=== PATIENT | male | born 1985 | race Caucasian/White ===

== ENCOUNTER 2022-07-07 18:52 | Inpatient (IN) | payer MEDICAID, MEDICARE ==
[~2022-07-07] VITALS: Ht 182.8 cm; Wt 76.3 kg
[2022-07-07] MEDS ORDERED: NS IV 1000 ML 1,000 ML IV SCH (19:45)
[2022-07-07] MEDS ORDERED: AMPICILLIN/SULBACTAM INJECTION 3 GM in NS (IVPB) 100 ML IV ONE (19:45)
--- NOTE | 2022-07-07 19:52 | ED Integumentary General ---
General Chief Complaint: Bite-Animal/Human/Insect Stated Complaint: BITE Nursing Triage Note: pt ambulatory to room with use of cane. pt was attacked by a dog two days ago. wounds to bilateral lower legs and to buttock. 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 states he does not know whos dog it was and did not report it when it happened. states he has felt feverish. Source: patient Exam Limitations: no limitations History of Present Illness Date Seen by Provider: Jul 07, 2022 Time Seen by Provider: 19:48 Initial Comments This is a 36-year-old male who presented to the ER via POV with complaints of left leg swelling and pain. States that he was attacked by a pit bull 2 days ago, unknown dog, they were unable to secure dog. He was bit on his left lower leg and his right buttock. States that he took 1 Aleve approximate hour to arrival, pain is still 10 out of 10. Allergies and Home Medications Allergies Coded Allergies: No Known Drug Allergies (Unverified , 07/07/22) Past Jjfspzy-Ldftmv-Ygqzvt Hx Patient Social History Tobacco Use?: Yes Tobacco type used: Cigarettes Smoking Status: Current Everyday Smoker Substance use?: Yes Substance type: Methamphetamine Substance frequency: Several times a month Alcohol Use?: No Immunizations Up To Date Influenza Vaccine Up-to-Date: No; Not Current Physical Exam Vital Signs Vital Signs - First Documented 07/07/22 19:11 Temp 37.2 Pulse 112 Resp 16 B/P (MAP) 115/70 (85) Pulse Ox 100 Capillary Refill : Progress/Results/Core Measures Results/Orders Lab Results Laboratory Tests Test 07/07/22 19:47 07/07/22 21:09 Range/Units White Blood Count 26.7 H 4.3-11.0 10^3/uL Red Blood Count 4.04 L 4.30-5.52 10^6/uL Hemoglobin 12.7 L 13.3-17.7 g/dL Hematocrit 37 L 40-54 % Mean Corpuscular Volume 91 80-99 fL Mean Corpuscular Hemoglobin 31 25-34 pg Mean Corpuscular Hemoglobin Concent 35 32-36 g/dL Red Cell Distribution Width 12.9 10.0-14.5 % Platelet Count 179 130-400 10^3/uL Mean Platelet Volume 11.5 9.0-12.2 fL Immature Granulocyte % (Auto) 2 % Neutrophils (%) (Auto) 90 H 42-75 % Lymphocytes (%) (Auto) 4 L 12-44 % Monocytes (%) (Auto) 4 0-12 % Eosinophils (%) (Auto) 0 0-10 % Basophils (%) (Auto) 0 0-10 % Neutrophils # (Auto) 24.0 H 1.8-7.8 10^3/uL Lymphocytes # (Auto) 1.0 1.0-4.0 10^3/uL Monocytes # (Auto) 1.0 0.0-1.0 10^3/uL Eosinophils # (Auto) 0.0 0.0-0.3 10^3/uL Basophils # (Auto) 0.1 0.0-0.1 10^3/uL Immature Granulocyte # (Auto) 0.6 H 0.0-0.1 10^3/uL Neutrophils % (Manual) 74 % Lymphocytes % (Manual) 5 % Monocytes % (Manual) 1 % Band Neutrophils 20 % Blood Morphology Comment NORMAL Prothrombin Time 17.1 H 12.2-14.7 SEC INR Comment 1.4 0.8-1.4 Activated Partial Thromboplast Time 36 H 24-35 SEC Sodium Level 133 L 135-145 MMOL/L Potassium Level 3.7 3.6-5.0 MMOL/L Chloride Level 99 98-107 MMOL/L Carbon Dioxide Level 20 L 21-32 MMOL/L Anion Gap 14 5-14 MMOL/L Blood Urea Nitrogen 53 H 7-18 MG/DL Creatinine 4.57 H 0.60-1.30 MG/DL Estimat Glomerular Filtration Rate 16 BUN/Creatinine Ratio 12 Glucose Level 114 H 70-105 MG/DL Lactic Acid Level 1.87 0.50-2.00 MMOL/L Calcium Level 9.0 8.5-10.1 MG/DL Corrected Calcium 9.6 8.5-10.1 MG/DL Total Bilirubin 0.3 0.1-1.0 MG/DL Aspartate Amino Transf (AST/SGOT) 29 5-34 U/L Alanine Aminotransferase (ALT/SGPT) 28 0-55 U/L Alkaline Phosphatase 58 40-136 U/L C-Reactive Protein High Sensitivity 32.16 H 0.00-0.50 MG/DL Total Protein 6.1 L 6.4-8.2 GM/DL Albumin 3.2 3.2-4.5 GM/DL Procalcitonin 17.19 H <0.10 NG/ML My Orders Orders - KYE MADDOX DIELECTRIC PRESS OPERATOR Ampicillin/Sulbactam Injection (Unasyn 3 (07/07/22 19:45) Cbc With Automated Diff (07/07/22 19:43) Comprehensive Metabolic Panel (07/07/22 19:43) Blood Culture (07/07/22 19:43) Sputum Culture (07/07/22 19:43) Urinalysis (07/07/22 19:43) Urine Culture (07/07/22 19:43) Protime With Inr (07/07/22 19:43) Partial Thromboplastin Time (07/07/22 19:43) Ed Iv/Invasive Line Start (07/07/22 19:43) O2 (07/07/22 19:43) Remove Rings In Anticipation O (07/07/22 19:43) Lactic Acid Analyzer (07/07/22 19:43) Ns Iv 1000 Ml (Sodium Chloride 0.9%) (07/07/22 19:45) Procalcitonin (Pct) (07/07/22 19:44) Hs C Reactive Protein (07/07/22 19:44) Drug Screen Stat (Urine) (07/07/22 19:52) Manual Differential (07/07/22 19:47) Rabies Immune Globulin/Pf 10ml (Kedrab 1 (07/07/22 20:15) Dipht,Pertuss(Acell),Tet Adult (Boostrix (07/07/22 20:15) Rabies Vaccine Human Dipl Cell (Rabavert (07/07/22 20:15) Fentanyl Inj (Sublimaze Injection) (07/07/22 21:15) Ns Iv 1000 Ml (Sodium Chloride 0.9%) (07/07/22 21:15) Medications Given in ED Current Medications Medications Dose Ordered Sig/Jonathan Route Start Time Stop Time Status Last Admin Dose Admin Ampicillin Sodium/ Sulbactam Sodium 3 gm/Sodium Chloride 100 ml @ 200 mls/hr ONCE ONCE IV 07/07/22 19:45 07/07/22 20:14 DC 07/07/22 20:03 200 MLS/HR Vital Signs/I&O 07/07/22 19:11 Temp 37.2 Pulse 112 Resp 16 B/P (MAP) 115/70 (85) Pulse Ox 100 Blood Pressure Mean: 85 Departure Communication (Admissions) Time/Spoke to Admitting Phy: 20:29 Dr. Tapia Time/Spoke to Consulting Phy: 19:48 Dr. Angeles Impression Primary Impression: Infected dog bite of lower leg Additional Impressions: Sepsis Acute kidney injury Disposition: ADMITTED INPATIENT Condition: Stable Admissions Decision to Admit Reason: Admit from ER (General) Decision to Admit/Date: Jul 07, 2022 Time/Decision to Admit Time: 20:33 KYE MADDOX DIELECTRIC PRESS OPERATOR Jul 07, 2022 19:52
[2022-07-07 20:00] LABS: BASOPHILS # (AUTO) 0.1 10^3/uL (0.0-0.1); BASOPHILS % (AUTO) 0 % (0-10); EOSINOPHILS % (AUTO) 0 % (0-10); HEMATOCRIT 37 % (40-54); HEMOGLOBIN 12.7 g/dL (13.3-17.7); LYMPHOCYTES % (AUTO) 4 % (12-44); MEAN CORPUSCULAR HEMOGLOBIN 31 pg (25-34); MEAN CORPUSCULAR HGB CONC 35 g/dL (32-36); MEAN CORPUSCULAR VOLUME 91 fL (80-99); MEAN PLATELET VOLUME 11.5 fL (9.0-12.2); MONOCYTES % (AUTO) 4 % (0-12); NEUTROPHILS % (AUTO) 90 % (42-75); PLATELET COUNT 179 10^3/uL (130-400); WHITE BLOOD COUNT 26.7 10^3/uL (4.3-11.0)
[2022-07-07 20:13] LABS: ALBUMIN 3.2 GM/DL (3.2-4.5); POTASSIUM 3.7 MMOL/L (3.6-5.0)
[2022-07-07 20:14] LABS: INR 1.4 (0.8-1.4); PROTHROMBIN TIME PATIENT 17.1 SEC (12.2-14.7)
[2022-07-07] MEDS ORDERED: RABIES IMMUNE GLOBULIN (KEDRAB) 1,500 UNITS/10 ML IM ONE (20:15)
[2022-07-07] MEDS ORDERED: TETANUS,DIPTH,PERTUSS P/F (BOOSTRIX) 0.5 ML VIAL IM ONE (20:15)
[2022-07-07] MEDS ORDERED: RABIES VACCINE HUMAN DIPL CELL 1 ML/2.5 UNITS SYR INJ ONE (20:15)
[2022-07-07 20:16] LABS: TOTAL PROTEIN 6.1 GM/DL (6.4-8.2)
[2022-07-07 20:18] LABS: BILIRUBIN,TOTAL 0.3 MG/DL (0.1-1.0)
[2022-07-07 20:20] LABS: CREATININE SERUM 4.57 MG/DL (0.60-1.30)
[2022-07-07 20:21] LABS: BAND NEUTROPHILS 20 %; LYMPHOCYTES % (MANUAL) 5 %; MONOCYTES % (MANUAL) 1 %; NEUTROPHILS % (MANUAL) 74 %; RBC MORPH NORMAL
[2022-07-07] MEDS ORDERED: fentaNYL INJ 100 MCG/2 ML AMP IVP ONE (21:15)
[2022-07-07] MEDS: NS IV 1000 ML 1,000 ML IV SCH ×2 (21:16→21:24)
[2022-07-07 21:18] LABS: BILIRUBIN,URINE NEGATIVE (NEGATIVE); CLARITY,URINE CLEAR; COLOR,URINE YELLOW; GLUCOSE, URINE (UA) NEGATIVE (NEGATIVE); KETONES,URINE NEGATIVE (NEGATIVE); LEUKOCYTE ESTERASE ,URINE NEGATIVE (NEGATIVE); NITRITE,URINE NEGATIVE (NEGATIVE); PROTEIN,URINE 2+ (NEGATIVE)
[2022-07-07 21:30] LABS: BACTERIA,URINE FEW /HPF
[2022-07-07 21:39] LABS: AMPHETAMINE SCREEN, URINE POSITIVE (NEGATIVE); BARBITURATE SCREEN URINE NEGATIVE (NEGATIVE); BENZODIAZEPINES SCREEN URINE NEGATIVE (NEGATIVE); CANNABINOID SCREEN, URINE NEGATIVE (NEGATIVE); COCAINE SCREEN URINE NEGATIVE (NEGATIVE); METHADONE STAT NEGATIVE (NEGATIVE); OPIATE SCREEN URINE NEGATIVE (NEGATIVE); OXYCODONE STAT NEGATIVE (NEGATIVE); PROPOXYPHENE STAT NEGATIVE (NEGATIVE); TRICYCLIC ANTIDEPRESSANTS SCRE NEGATIVE (NEGATIVE)
[2022-07-07] MEDS ORDERED: KETOROLAC 15 MG/ML VIAL IV PRN (23:45)
[2022-07-07] MEDS ORDERED: cloNIDine 0.1 MG (CATAPRES) TAB PO PRN (23:45)
[2022-07-07] MEDS ORDERED: LACTULOSE SYRUP 10GM/15ML (ENULOSE) 30ML UDC PO PRN (23:45)
[2022-07-07] MEDS ORDERED: ONDANSETRON 4 MG/2 ML (SDV) Z0FRAN IV PRN (23:45)
[2022-07-07] MEDS ORDERED: CALCIUM CARBONATE 500 MG (TUMS) TAB.CHEW PO PRN (23:45)
[2022-07-07] MEDS ORDERED: BISACODYL 10 MG SUPP (DULCOLAX) PR PRN (23:45)
[2022-07-07] MEDS ORDERED: MILK OF MAGNESIA 400 MG/5 ML 30 ML UDC PO PRN (23:45)
[2022-07-07] MEDS ORDERED: VANCOMYCIN INJECTION 0.1 MG in NS (IVPB) 250 ML IV SCH (23:45)
[2022-07-07] MEDS ORDERED: diphenhydrAMINE 25 MG TAB (BENADRYL) PO PRN (23:45)
[2022-07-07] MEDS ORDERED: ONDANSETRON 4 MG (ZOFRAN) ORAL DISSOLVE TAB PO PRN (23:45)
[2022-07-07] MEDS ORDERED: NS IV 500 ML 500 ML IV PRN (23:45)
[2022-07-07] MEDS ORDERED: polyethylene glycoL POWDER 17 GM (MIRALAX) PACK PO PRN (23:45)
[2022-07-07] MEDS ORDERED: diphenhydrAMINE 50 MG/ML INJ (BENADRYL) IVP PRN (23:45)
[2022-07-07] MEDS ORDERED: ANTACID SUSP 30 ML UDC (MYLANTA) PO PRN (23:45)
[2022-07-07] MEDS ORDERED: MELATONIN 3 MG TABLET PO PRN (23:45)
[2022-07-08] VITALS (7 sets, daily range): BP systolic 102–125; BP diastolic 66–81
--- NOTE | 2022-07-08 00:18 | Tele-ICU Progress Note ---
Progress Note 36M with h/o meth abuse admitted for infected dog bite and SALVADOR. Was bitten by a pittbull 2 days ago with wounds to bilateral lower legs and buttock. He denies knowing whose dog it was and was unable to testrain it. Has had increased swelling and pain, subjective fevers. Currently rating pain at 15/10. States it was improved with fentanyl in ED. In ED cultures sent, started on unasyn and vanco. Incidentally found to have creatinine 4.5. - Dog Bite: with cellulitus. Received unasyn, vanco, rabbies uumne globulin and rabies vaccine in ED. Poison control following. Cellulitus borders marked for m onitoring. Pain control. - SALVADOR: given 3L IVF in ED. Will start LR at 150 cc/hr. Monitor renal function and urine output. Avoid nephrotoxins as much as possible. Diagnosis: _X_ patient provided consent for the telehealth visit ___patient is not able to provide consent for the telehealth visit, service provided to critically care patient using implied consent doctrine. A total of 19 minutes of critical care time was devoted to this patient, including reviewing this patient's available data, including medical history, events of note and test results. *I have overseen the activities of other members of the care team under my direct supervision during events of the note . *This was required to treat and/or prevent further deterioration of critical c are conditions ( as above ). *Service provided to a patient admitted to ICU bed via interactive E-CARE system with real-time audio and video telecommunications from [facility]- ICU hub located in [place], [place] Focused Exam Lactate Level 07/07/22 19:47: Lactic Acid Level 1.87 Height, Weight, BMI Height: '" Weight: lbs. oz. kg; 23.00 BMI Method: YUN BLAKE MD Jul 08, 2022 00:18
[2022-07-08] MEDS: fentaNYL INJ 100 MCG/2 ML AMP IVP PRN ×3 (00:41→07:52)
[2022-07-08] MEDS: NS IV 1000 ML 1,000 ML IV SCH ×3 (00:41→15:26)
[2022-07-08] MEDS: NOREPINEPHRINE 8 MG/250 ML 250 ML IV SCH ×2 (00:51→16:30)
[2022-07-08] MEDS ORDERED: RT-ALBUTEROL SULF 2.5 MG/3 ML PRE-MIX VIAL INH PRN (01:00)
[2022-07-08] MEDS: KCL 20 MEQ TAB (K-DUR) PO SCH (01:37)
[2022-07-08] MEDS ORDERED: VANCOMYCIN 1 GM/NS 250 ML IVPB IV ONE ×2 (01:45)
[2022-07-08] MEDS ORDERED: VANCOMYCIN 750 MG/NS 250 ML IVPB IV ONE ×2 (02:45)
[2022-07-08] MEDS: POTASSIUM CL 10MEQ/50ML IVPB 50 ML IV SCH (02:51)
[2022-07-08] MEDS: morphine INJ 4 MG/ML 1 ML (VIAL/SYRINGE) IV PRN ×3 (03:20→19:06)
[2022-07-08] MEDS: MAGNESIUM 1 GM/100 ML IVPB 100 ML IV SCH (03:42)
[2022-07-08 05:33] LABS: BASOPHILS # (AUTO) 0.1 10^3/uL (0.0-0.1); BASOPHILS % (AUTO) 0 % (0-10); EOSINOPHILS # (AUTO) 0.1 10^3/uL (0.0-0.3); EOSINOPHILS % (AUTO) 1 % (0-10); HEMATOCRIT 34 % (40-54); HEMOGLOBIN 11.7 g/dL (13.3-17.7); LYMPHOCYTES # (AUTO) 0.9 10^3/uL (1.0-4.0); LYMPHOCYTES % (AUTO) 5 % (12-44); MEAN CORPUSCULAR HEMOGLOBIN 31 pg (25-34); MEAN CORPUSCULAR HGB CONC 34 g/dL (32-36); MEAN CORPUSCULAR VOLUME 91 fL (80-99); MEAN PLATELET VOLUME 11.8 fL (9.0-12.2); MONOCYTES # (AUTO) 1.4 10^3/uL (0.0-1.0); MONOCYTES % (AUTO) 7 % (0-12); NEUTROPHILS # (AUTO) 17.6 10^3/uL (1.8-7.8); NEUTROPHILS % (AUTO) 84 % (42-75); PLATELET COUNT 166 10^3/uL (130-400)
[2022-07-08 05:41] LABS: ALBUMIN 2.7 GM/DL (3.2-4.5); POTASSIUM 3.6 MMOL/L (3.6-5.0)
[2022-07-08 05:42] LABS: CALCIUM 8.3 MG/DL (8.5-10.1)
[2022-07-08 05:44] LABS: TOTAL PROTEIN 5.2 GM/DL (6.4-8.2)
[2022-07-08 05:45] LABS: BILIRUBIN,TOTAL 0.3 MG/DL (0.1-1.0)
[2022-07-08 05:47] LABS: CREATININE SERUM 4.11 MG/DL (0.60-1.30); PHOSPHORUS 3.4 MG/DL (2.3-4.7)
[2022-07-08 05:50] LABS: MAGNESIUM 1.5 MG/DL (1.6-2.4)
--- NOTE | 2022-07-08 08:12 | Physician Query Clarification ---
PQ-Uncertain Diagnosis Admission/Discharge Admission Date: Jul 07, 2022 at 22:15 Discharge Date: Dr. Tapia, The medical record reflects the following clinical scenario: History/Risk Factors: Dog bite w/cellulitis lt lower leg, SALVADOR Clinical Findings: Lactic acid 1.87, WBC 26.7, P 112, T 37.2, R 16, Procalcitonin 17.19, Bun/Cr 53/4.57 Treatment: IV Ampicillin, IV Vancomycin Question: Is sepsis a clinically valid diagnosis? Sepsis was documented in the ER rpt with no further documentation in the medical record. Please document a response in Progress Note or Discharge Summary. 1. Yes, clinically valid, condition resolved. 2. No, condition ruled out. 3. Other, with explanation of clinical findings. 4. Undetermined, no explanation for clinical findings. PHYSICIAN RESPONSE Diagnosis clinically valid: Undetermined (this query was sent BEFORE we assessed the patient so documentation will be done shortly by dr contreras) In responding to this query, please exercise your independent professional judgment. The purpose of this communication is to more accurately reflect the complexity of your patients condition. The fact that a question is asked does not imply that any particular answer is desired or expected. Thank you for your timely response to this clarification. Requestors name: Arlene THIS PHYSICIAN QUERY FORM IS A PERMANENT PART OF THE MEDICAL RECORD ARLENE PIÑA Jul 08, 2022 08:12 SOLEDAD TAPIA DO Jul 08, 2022 10:24
[2022-07-08] MEDS: ENOXAPARIN INJECTION 30 MG/0.3 ML SYR SC SCH (09:00)
[2022-07-08] MEDS: AMPICILLIN/SULBACTAM INJECTION 3 GM in NS (IVPB) 100 ML IV SCH ×2 (09:01→20:38)
[2022-07-08] MEDS: SENNOSIDES 8.6 MG (SENOKOT) TAB PO SCH ×2 (09:25→20:38)
[2022-07-08] MEDS: DOCUSATE SODIUM 100 MG (COLACE) CAP PO SCH ×2 (09:25→20:38)
--- NOTE | 2022-07-08 09:37 | Tele-ICU Consult ---
History of Present Illness History of Present Illness Date Seen by Provider: Jul 08, 2022 Time Seen by Provider: 08:15 Date of Admission (Tele-ICU Physician , consultation as per request of PCP Service provided via interactive audio and video telecommunications E-CARE system to a patient admitted to ICU bed in [facility]. Available chart/ vitals / labs / Images reviewed H&P is from ER notes Patient's information available about PMH, Shx, Fhx allergy reviewed inEMR. ROS as per chart and RN report Seen last night by Dr Samantha Oden tele-ICU Now in ICU, hemodynamically stable Video assessment done using teleICU camera, rest of exam as per RN Discussed with RN. Consultants: Hospital course: (07/07) 36yr M admitted for SALVADOR, Infected Dog Bite to left leg and right buttock. Patient was attacked by pitbull 2 days ago. + Methamphetamines. A/P - Dog Bite ( wounds to bilateral lower legs and to buttock.) with cellulitus. (rabbies uumne globulin and rabies vaccine given in ED. Poison control following. Cellulitus --Received unasyn, vanco borders marked for monitoring. Pain control. Acute kidney injury -received > 4 L - will check CPK - Cr still > 4 , but reported good UO - NS 200/h -Monitor renal function and urine output. Avoid nephrotoxins as much as possi ble. Substance abuse ( + methamphet + amphetamines ) - monitor for withdrawal Lines : periph , (Central Line Necessity Reviewed) [place]: void OG: Nutrition: po Analgesia: Anxiety/ delirium VTE Prophylaxis: alexander 30 Stress Ulcer Prophylaxis: na Plans in collaboration with bedside consultants and IM MDs. Discussed with RN to reach out if any questions or concerns A total of 32 minutes of critical care time was devoted to this patient today, required to treat and/or prevent further deterioration of critical care condition ( as above ) . I am remotely monitoring this patient from another state. I am unable to do the bedside exam, and history/physical and pertinent information is taken from other notes in the computer and bedside staff. . Allergies and Home Medications Allergies Coded Allergies: No Known Drug Allergies (Unverified , 07/07/22) Past Medical/Social/Family Hx Patient Social History Tobacco Use?: Yes Tobacco type used: Cigarettes Smoking Status: Current Everyday Smoker Substance use?: Yes Substance type: Methamphetamine Substance frequency: Couple times a week Alcohol Use?: Yes Alcohol type: Beer Immunizations Up To Date Influenza Vaccine Up-to-Date: No; Not Current Tetanus Booster (TDap): More Than 5 Years Current Status Advance Directives: Yes Communicates: Verbally Primary Language: Martiniquais Preferred Spoken Language: Martiniquais Is interpretation needed?: No Review of Systems Constitutional: see HPI Focused Exam Lactate Level 07/07/22 19:47: Lactic Acid Level 1.87 Height, Weight, BMI Height: '" Weight: lbs. oz. kg; 22.59 BMI Method: Exam Exam Patient acknowledged, consented, and participated in this virtual visit which was conducted using real time audio/video Vital Signs Date Time Temp Pulse Resp B/P (MAP) Pulse Ox O2 Delivery O2 Flow Rate FiO2 07/08/22 08:00 99 106/71 (83) 99 Room Air 07/08/22 07:56 36.8 07/08/22 07:46 100 Room Air 07/08/22 07:38 100 07/08/22 07:00 96 45 115/79 (91) 100 Room Air 07/08/22 06:00 104 20 114/76 (89) 100 Room Air 07/08/22 05:00 97 100/65 (77) 100 Room Air 07/08/22 04:00 99 Room Air 07/08/22 04:00 103 16 102/70 (81) 100 Room Air 07/08/22 03:20 98 Room Air 07/08/22 03:15 101 25 111/73 (86) 100 Room Air 07/08/22 02:00 106 97/59 (72) 100 Room Air 07/08/22 01:15 105 8 107/75 (86) 100 Room Air 07/08/22 00:51 112 115/70 07/08/22 00:43 37.2 112 100 21 07/08/22 00:23 99 Room Air 07/08/22 00:13 99 Room Air 07/08/22 00:08 104 07/08/22 00:00 105 13 117/65 (82) 99 Room Air 07/08/22 00:00 37.2 107 16 114/74 100 07/08/22 00:00 36.9 07/07/22 19:11 37.2 112 16 115/70 (85) 100 I & O 07/08/22 07:00 Intake Total 4650 ml Output Total 700 ml Balance 3950 ml Height & Weight Height: '" Weight: lbs. oz. kg; 22.59 BMI Method: General Appearance: No Apparent Distress Results Lab Laboratory Tests 07/07/22 19:47 07/08/22 04:45 Assessment/Plan Assessment/Plan 1 BABITA BRIGHT MD Jul 08, 2022 09:37
--- NOTE | 2022-07-08 11:46 | Diagnostic Imaging Report ---
PROCEDURE: CT left lower extremity without contrast. TECHNIQUE: Multiple contiguous axial images were obtained through the left lower extremity without the use of intravenous contrast. Sagittal and coronal reformations were then performed. Auto Exposure Controls were utilized during the CT exam to meet ALARA standards for radiation dose reduction. INDICATION: Dogbite with possible infection to the left lower extremity. EXAMINATION: CT left lower extremity without contrast 07/08/2022 FINDINGS: There is marked diffuse subcutaneous fat stranding likely due to edema although cellulitis is not excluded. There is no subcutaneous abscess. There are multifocal areas of air within the posterior lateral aspect of the proximal calf with surrounding fluid noted. This appears to lie within the lateral head of the gastrocnemius muscle and extends into the underlying fascial planes possibly involving portions of the soleus muscle. An intramuscular abscess is not excluded and MRI could provide better characterization. Minimal air is also noted within the posterior subcutaneous soft tissues of the mid and proximal calf. There is no acute osseous abnormality. No fractures or dislocations. Joint spaces maintained. IMPRESSION: 1. Diffuse subcutaneous edema versus cellulitis with minimal subcutaneous air in the posterior mid to proximal calf. 2. Fluid collection containing multiple foci of air within the lateral gastrocnemius muscle and underlying deeper fascial planes possibly involving portions of the soleus. An intramuscular abscess is not excluded. MRI recommended for further characterization if clinically indicated. Otherwise the focal air could be secondary to the dogbite with a gas-forming organism not excluded. 3. Not mentioned above a fair amount of fluid lies along the fascial planes overlying the posterior musculature of the calf suggesting fasciitis. Dictated by: Dictated on workstation # [id number]
--- NOTE | 2022-07-08 12:45 | Progress Note-Pre Operative ---
Pre-Operative Progress Note Date of Available H&P: Jul 08, 2022 Date H&P Reviewed: Jul 08, 2022 Time H&P Reviewed: 12:30 History & Physical: No changes noted Pre-Operative Diagnosis: necrotizing fasciitis left leg JARON CASTELLANOS MD Jul 08, 2022 12:45
--- NOTE | 2022-07-08 12:55 | History & Physical-Hospitalist ---
ELGINCTANAND 07/08/22 1255: History of Present Illness HPI/Chief Complaint Danis Moura is a 36y/o M who is being seen for dog bites. Pt reports that 3 days ago he was bit by a dog on both lower legs and his right buttocks. He did not know who's dog it was. The dog ran away afterwards and pt did not make a police report or call animal control. He did not seek medical attention after the incident. In the following days the legs began to swell and become red. Presented to the ER last night due to the increasing swelling, erythema, and pain. Also was having fever and chills. Given rabies immunoglobin and rabies vaccine. Also started on antibiotics. Today her reports that the pain in his legs is a "12/10". The pain does improve w/ pain medication. Erythema has not spread and he says that the swelling has improved since admission. Denies currently having any fevers, chills, vision changes, headaches, muscle weakness, numbness, or tingling in extremities. He does have a hx of meth use. Source: patient Exam Limitations: no limitations Date Seen 07/08/22 Time Seen by a Provider: 08:36 Attending Physician No,Local Physician PCP Admitting Physician: Lucila Tapia DO Attending Physician: Lucila Tapia DO Referring Physician Date of Admission Jul 07, 2022 at 22:15 Home Medications & Allergies Home Medications Reviewed patient Home Medication Reconciliation performed by pharmacy medication reconciliations accessibility lift technician and/or nursing. Patients Allergies have been reviewed. Allergies Allergies Coded Allergies No Known Drug Allergies (Gwnmtmcagl61/9/22) Past Byolwpi-Kzlcvt-Wsxfya Hx Patient Social History Tobacco Use?: Yes Tobacco type used: Cigarettes Smoking Status: Current Everyday Smoker Substance use?: Yes Substance type: Methamphetamine Substance frequency: Couple times a week Alcohol Use?: Yes Alcohol type: Beer Immunizations Up To Date Tetanus Booster (TDap): More Than 5 Years Current Status Advance Directives: Yes Communicates: Verbally Primary Language: Portuguese Preferred Spoken Language: Portuguese Is interpretation needed?: No Review of Systems Constitutional: No chills, No dizziness, No fever, No weakness EENTM: No blurred vision, No double vision Respiratory: No cough, No dyspnea on exertion Cardiovascular: No chest pain, No palpitations Gastrointestinal: No abdominal pain, No nausea, No vomiting Genitourinary: No dysuria, No frequency Musculoskeletal: other (b/l leg pain and swelling) Skin: other (erythema in legs) Psychiatric/Neurological: Denies Headache, Denies Numbness, Denies Paresthesia, Denies Tingling Physical Exam Physical Exam Vital Signs Vital Signs - First Documented 07/07/22 07/08/22 07/08/22 19:11 00:00 00:43 Temp 37.2 Pulse 112 Resp 16 B/P (MAP) 115/70 (85) Pulse Ox 100 O2 Delivery Room Air FiO2 21 Capillary Refill : Height, Weight, BMI Height: '" Weight: lbs. oz. kg; 22.59 BMI Method: General Appearance: No Apparent Distress, WD/WN HEENT: PERRL/EOMI; No Photophobia Neck: Non Tender, Supple Respiratory: Chest Non Tender, Lungs Clear, Normal Breath Sounds, No Accessory Muscle Use, No Respiratory Distress Cardiovascular: Regular Rate, Rhythm, No Murmur, Normal Peripheral Pulses Gastrointestinal: Non Tender, Soft Extremity: Calf Tenderness (left leg), Inflammation (lf leg worse than right, swelling extends proximally to just above the popliteal fossa and distally to above the ankle on left, much less on right), Swelling (lf worse than right) Neurologic/Psychiatric: Alert, Oriented x3, Normal Mood/Affect Skin: Erythema, Other (warm to touch b/l legs, left>right) Results Results/Procedures Labs Laboratory Tests 07/07/22 19:47 07/08/22 04:45 Patient resulted labs reviewed. Assessment/Plan Admission Diagnosis Dog bites cellulitis Possible necrotizing fasciitis SALVADOR Substance abuse Assessment and Plan Dog bites Cellulitis Sepsis Possible necrotizing fasciitis -On Unasyn and vancomycin -WBC of 21 today, down from 27 yesterday, still meets SIRS criteria -Rabies prophylaxis done in ER -CT of left leg done showing, according to radiology, focal air that could be secondary to the dogbite with a gas-forming organism and a fair amount of fluid lies along the fascial planes overlying the posterior musculature of the calf suggesting fasciitis. -Surgery consulted and pt will be undergoing a debridement today -Pain control SALVADOR -Cr improved today down to 4.11 from 4.57 -Continue supplemental fluids -Continue to monitor RFTs Substance abuse -Monitor for signs of withdrawal Diet:NPO Code status: full code DVT prophylaxis: Lovenox Clinical Quality Measures DVT/VTE Risk/Contraindication: Contraindications-Mechi: Other *list below* Other: leg cellulitis MIKEY CHANG MD 07/08/221907: History of Present Illness Source: patient Exam Limitations: no limitations Time Seen by a Provider: 09:00 Past Bvisqrl-Tgetpt-Bvmcxi Hx Family Medical History No Pertinent Family Hx Physical Exam Physical Exam Extremity: Calf Tenderness (left leg), Inflammation (lf leg worse than right, swelling extends proximally to just above the popliteal fossa and distally to above the ankle on left, much less on right), Swelling (left calf red, warm, tender, swollen, extends up to posterior thigh) Results Results/Procedures Imaging: Reviewed Imaging Films, Reviewed Imaging Report Assessment/Plan Admission Diagnosis Sepsis due to necrotizing fasciitis Admission Status: Inpatient Order (span 2 midnights) Reason for Inpatient Admission: IV antibiotics and surgical intervention Assessment and Plan Admitted with skin and soft tissue infection following dog bite. Exam and labs concerning for deep tissue infection, necrotizing fasciitis. CT with gas formation, consistent with fasciitis. Case discussed with Dr. Angeles. Plan for surgical debridement today. Continue broad spectrum antibiotics. Await culture results. Also with SALVADOR, consistent with ATN. Continue fluids and monitor. Critical Care Critically Ill Patient Diagnosis/Problems Diagnosis/Problems (1) Sepsis Status: Acute Qualifiers: Sepsis type: sepsis due to unspecified organism Sepsis acute organ dysfunct ion status: with acute organ dysfunction Severe sepsis acute organ dysfunction type: acute renal failure Acute renal failure type: with acute tubular necrosis Severe sepsis shock status: without septic shock Qualified Codes: A41.9 - Sepsis, unspecified organism; R65.20 - Severe sepsis without septic shock; N17.0 - Acute kidney failure with tubular necrosis (2) Necrotizing fasciitis of lower leg Status: Acute (3) Dog bite of calf Status: Acute Qualifiers: Encounter type: initial encounter Laterality: left Qualified Codes: S81.852A - Open bite, left lower leg, initial encounter; W54.0XXA - Bitten by dog, initial encounter (4) ATN (acute tubular necrosis) Status: Acute (5) SALVADOR (acute kidney injury) Status: Acute (6) Methamphetamine abuse Status: Acute Supervisory-Addendum Brief Verification & Attestation Participated in pt care: history, MDM, physical Personally performed: exam, history, MDM, supervision of care Care discussed with: Medical Student Procedures: n/a Results interpretation: Verified all documentation A medical student performed and documented this service in my presence. I rev iewed and verified all information documented by the medical student and made modifications to such information, when appropriate. I personally performed the physical exam and medical decision making. ANAND TAMAYO Jul 08, 2022 12:55 MIKEY CHANG MD Jul 08, 2022 19:08
[2022-07-08] MEDS ORDERED: KETAMINE 50 MG/5 ML SYRINGE ONE (14:15)
[2022-07-08] MEDS ORDERED: proPOfol 200 MG/20 ML (DIPRIVAN) VIAL IV ONE (14:15)
[2022-07-08] MEDS ORDERED: LACTATED RINGERS 1,000 ML IV PRN (14:30)
[2022-07-08] MEDS ORDERED: METOCLOPRAMIDE INJ 10 MG/2 ML (REGLAN) IV NR (15:00)
[2022-07-08] MEDS ORDERED: FAMOTIDINE 20MG/2ML IV (PEPCID) IV NR (15:00)
[2022-07-08 15:35] LABS: CALCIUM 8.6 MG/DL (8.5-10.1); CREATININE SERUM 3.22 MG/DL (0.60-1.30)
[2022-07-08] MEDS ORDERED: MIDAZOLAM 2 MG/2 ML (VERSED) VIAL ONE ×2 (15:50→17:01)
[2022-07-08] MEDS ORDERED: GLYCOPYRROLATE 0.2 MG/ML (ROBINUL) 2 ML VIAL ONE (15:51)
[2022-07-08] MEDS ORDERED: BUP/EPI 0.5% 1:200,000 (MARCAINE) 10ML VIAL IJ ONE (16:14)
[2022-07-08] MEDS ORDERED: KETAMINE HCL 100 MG/ML 5 ML VIAL ONE (16:59)
[2022-07-08] MEDS ORDERED: SEVOFLURANE (ULTANE) 15 ML INHAL SOLN ONE ×2 (17:20→17:38)
--- NOTE | 2022-07-08 17:43 | Progress Note-Post Operative ---
Post-Operative Progess Note Surgeon (s)/Medical Records Custodian (s) Surgeon JARON CASTELLANOS MD Medical Records Custodian: cuate roberts MACHINE HOSTLER Pre-Operative Diagnosis necrotizing fasciitis left leg Post-Operative Diagnosis same, pending compartment syndrome Procedure & Operative Findings Date of Procedure 07/08/22 Procedure Performed/Findings debridement skin subcutaneous, fascia, muscle [id number] left posterolateral lower leg, 4 compartment fasciotomy. Anesthesia Type general with local. Estimated Blood Loss Estimated blood loss (mL): 150ml Specimens/Packing Specimens Removed skin, SQ, fascia muscle lower left leg. JARON CASTELLANOS MD Jul 08, 2022 17:43
[2022-07-08] MEDS ORDERED: HYDROmorphone 2 MG/ML VIAL (DILAUDID) IV ONE (18:15)
[2022-07-08] MEDS ORDERED: ONDANSETRON 4 MG/2 ML (SDV) Z0FRAN IVP PRN (18:15)
[2022-07-08] MEDS: DexMEDEtomidine 250 ML DRIP 250 ML IV SCH (19:20)
[2022-07-08] MEDS: LACTATED RINGERS 1,000 ML IV SCH (20:40)
[2022-07-09] MEDS ORDERED: ZIPRASIDONE 20 MG INJ (GEODON) VIAL IM PRN (00:30)
[2022-07-09] MEDS ORDERED: WATER (STERILE) FOR INJ 10 ML BTL INJ SCH (00:30)
--- NOTE | 2022-07-09 03:41 | OPERATIVE REPORT ---
DATE OF SERVICE: 07/08/2022 PREOPERATIVE DIAGNOSIS: Necrotizing fasciitis, lower aspect of the left leg secondary to a dog bite and chronic methamphetamine use. POSTOPERATIVE DIAGNOSES: Necrotizing fasciitis along the posterolateral aspect of the lower aspect of the left leg overlying the gastrocnemius muscle, 20 x 20 cm in size and complicating skin, subcutaneous tissue, fascia and muscle, pending compartment syndrome. PROCEDURES: Debridement, left lower leg including skin, subcutaneous tissue, fascia, muscle, 20 x 20 cm in dimension as well as a 4-compartment fasciotomy. SURGEON: Richard Castellanos MD SEX THERAPIST: Bry Hurd APRN ANESTHESIA: General. ESTIMATED BLOOD LOSS: 150 mL FINDINGS: Necrotizing fasciitis along the posterolateral aspect of the lower aspect of the left leg overlying the gastrocnemius muscle, 20 x 20 cm in size and complicating skin, subcutaneous tissue, fascia and muscle, pending compartment syndrome. DISPOSITION: The patient tolerated the procedure well. INDICATIONS: The patient is a 36-year-old male who presented by private vehicle to the Emergency Department last night after being bitten by a pit bull 2 days previous. He does not know whose dog this was and it did not make any police reports or call animal control. He states that over time, he developed pain, erythema as well as drainage and decided to come to the Emergency Department. Upon examination, he did have redness, erythema as well as drainage. The compartments were soft. The patient was admitted, IV fluids and IV antibiotics. The patient also does have a history of methamphetamine use as well as a previous suicide attempts and continues to use methamphetamine as well as regular cigarette smoking. CT scan was performed, which did show subcutaneous gas as well as edematous fluid planes likely secondary to necrotizing fasciitis. DESCRIPTION OF PROCEDURE: The patient was brought to the operating room, laid supine on the table. After adequate IV pain and sedative medications and general anesthesia, the left lower extremity was prepped and draped in standard surgical fashion. We then proceeded with meticulous dissection of the skin and subcutaneous tissue as well as fascia and muscle layers, where there was a significant amount of purulence as well as crepitance consistent with necrotizing fasciitis. We did this using a sharp dissection with a 15 blade as well as electrocautery until good bleeding vitalized tissue was identified. Once the resection was done, the measured dimensions along the posterior aspect of the leg overlying the gastrocnemius muscle was 20 x 20 cm. Due to the impending compartment syndrome, we then proceeded with a 4-compartment fasciotomy along the bilateral aspects of the leg, opening the anterior perineal compartments as well as the superficial and deep posterior components using electrocautery with visualization with good hemostasis. The wound was then power irrigated and good hemostasis was observed. Wound was then dried, covered with wet and dry dressings followed by ABD pad and a 6-inch Etienne wrap. The patient tolerated the procedure well. We will consult wound care for VAC placement and continue with IV antibiotics and monitoring for further necrotic changes report. Job ID: [id number] DocumentID: [id number] Dictated Date: 07/08/2022 17:52:04 Bolt Machine Operator Date: 07/09/2022 03:39:00 Dictated By: RICHARD CASTELLANOS MD
[2022-07-09] MEDS: LACTATED RINGERS 1,000 ML IV SCH ×5 (04:58→21:02)
[2022-07-09] MEDS: POTASSIUM CL 10MEQ/50ML IVPB 50 ML IV SCH (04:59)
[2022-07-09] MEDS: NS IV 1000 ML 1,000 ML IV SCH ×4 (04:59→23:11)
[2022-07-09] MEDS: MAGNESIUM 1 GM/100 ML IVPB 100 ML IV SCH (04:59)
[2022-07-09] MEDS: KCL 20 MEQ TAB (K-DUR) PO SCH (05:00)
[2022-07-09] MEDS: DOCUSATE SODIUM 100 MG (COLACE) CAP PO SCH ×2 (07:44→21:02)
[2022-07-09] MEDS: ENOXAPARIN INJECTION 30 MG/0.3 ML SYR SC SCH (07:45)
[2022-07-09] MEDS: SENNOSIDES 8.6 MG (SENOKOT) TAB PO SCH ×2 (07:45→21:02)
[2022-07-09] MEDS: AMPICILLIN/SULBACTAM INJECTION 3 GM in NS (IVPB) 100 ML IV SCH ×3 (07:45→21:03)
--- NOTE | 2022-07-09 09:53 | Anesthesia-General Post-Op ---
General Patient Condition Mental Status/LOC: Same as Preop Cardiovascular: Satisfactory Nausea/Vomiting: Absent Respiratory: Satisfactory Pain: Controlled Complications: Absent Post Op Complications Complications None Follow Up Care/Instructions Patient Instructions None needed. Anesthesia/Patient Condition Patient Condition Patient is doing well, no complaints, stable vital signs, no apparent adverse anesthesia problems. No complications reported per nursing. KATERIN PRINCE CRNA Jul 09, 2022 09:53
[2022-07-09] MEDS: NOREPINEPHRINE 8 MG/250 ML 250 ML IV SCH (09:54)
[2022-07-09] MEDS: fentaNYL INJ 100 MCG/2 ML AMP IVP PRN ×2 (10:32→11:41)
[2022-07-09] MEDS: morphine INJ 4 MG/ML 1 ML (VIAL/SYRINGE) IV PRN (11:00)
[2022-07-09] MEDS: LORazepam INJ 2 MG/ML (ATIVAN) VIAL IVP PRN (11:40)
[2022-07-09] MEDS: morphine IMMEDIATE RELEASE 15 MG TABLET PO PRN (11:43)
[2022-07-09] MEDS ORDERED: TROUGH ORDER-PHARMACY XX ONE ×2 (12:00→13:00)
--- NOTE | 2022-07-09 12:18 | Wound Care Assessment ---
Wound Care Assessment Date Seen by Provider: Jul 09, 2022 Time Seen by Provider: 12:13 Chief Complaint Necrotizing fasciitis s/p debridement HPI This 36 year old presented to our facility with report of dog bite on 07/05/22. He noted fever and erythema in days following bite and on exam with concern for necrotizing fasciitis and impending compartment syndrome. CT concerning for gas forming bacterial infection vs. intramuscular abscess. Debridement per Dr. Angeles with remaining exposed muscle and fascia (necrotic). Danis has a h/o tobacco ism (1ppd) and methamphetamine use (last on 07-06-22). He does also present with acute renal injury and protein energy malnutrition. He is currently on Vancomycin and Unasyn. WBC beginning to improve. Renal injury slowly improving as well with aggressive rehydration. Plan for wound vac therapy. Danis was strongly advised on both tobacco and methamphetamine cessation. Chances of he aling a wound of this nature with continued use of either is slim. Danis is from [place] and does have insurance but no primary physician. He will need continued wound care for wound vac upon discharge. Veriflow would be a good idea as well but our supplies of Vashe are low. Plan to order and transition to this on Tuesday if available. Smoking Status: Current Everyday Smoker (1 ppd) Recreational Drug Use: Yes (methamphetamine (last on 07-06-22)) Review of Systems General: Other (Fever) Exam Vital Signs Date Time Temp Pulse Resp B/P (MAP) Pulse Ox O2 Delivery O2 Flow Rate FiO2 07/09/22 11:00 99 20 124/93 (103) Room Air 07/09/22 09:00 99 07/09/22 07:51 37.1 07/08/22 18:30 2.00 07/08/22 00:43 21 Capillary Refill : General Appearance: moderate distress, thin, other (difficulty sitting still through exam) HEENT: other (hearing wnl) Neck: full range of motion Cardiovascular: no edema Respiratory: no respiratory distress, no accessory muscle use Extremities: normal range of motion, calf tenderness, inflammation Neurologic/Psychiatric: alert, oriented x 3, other (difficulty sitting still) Skin: normal color, warm/dry Wound assessment: 17.3x18.1x1.2 cm. Exposed necrotic fascia and muscle. The epithelialization is none. There is no tunneling. Undermining 7-11 (max 3cm), 4- 6 (max 2.2cm). Drainage is large and serosanguinous. Granulation is none. Margin is flat. Results Laboratory Tests 07/08/22 15:15: Sodium Level 136, Potassium Level 4.0, Chloride Level 105, Carbon Dioxide Level 22, Anion Gap 9, Blood Urea Nitrogen 47H, Creatinine 3.22#H, Estimat Glomerular Filtration Rate 25, BUN/Creatinine Ratio 15, Glucose Level 94, Calcium Level 8.6 Microbiology 07/07/22 MRSA Screen - Final, Complete MRSA not isolated 07/07/22 Urine Culture - Preliminary, Resulted NO GROWTH 07/07/22 Blood Culture - Preliminary, Resulted No growth Microbiology 07/07/22 MRSA Screen - Final, Complete MRSA not isolated 07/07/22 Urine Culture - Preliminary, Resulted NO GROWTH 07/07/22 Blood Culture - Preliminary, Resulted No growth 07/07/22 Blood Culture - Preliminary, Resulted No growth Assessment/Plan/Dx Assessment: 1. Necrotizing fasciitis s/p debridement 2. Impending compartment syndrome (resolved) 3. Dog bite 4. Methamphetamine abuse 5. Tobaccoism 6. PEM 7. Acute kidney injury Plan: 1. Wound vac therapy. white foam to exposed structure with granulofoam atop and suction at 125. Change twice weekly. Consider transition to veriflow with vashe on Tuesday if available and patient to remain in hospital for several days. Agree with broad spectrum antibiotics. 2. Per surgery 3. per primary team 4. Counseled patient on drug use and necessity for cessation for wound healing 5. Counseled on tobacco cessation 6. Protein shakes 7. Per primary team. DIANA LINARES MD Jul 09, 2022 12:18
--- NOTE | 2022-07-09 12:31 | Progress Note ---
Subjective Date Seen by a Provider: Jul 09, 2022 Time Seen by a Provider: 10:30 Subjective/Events-last exam doing better. no fever/chills. tolerating diet. pain controlled. soft c ompartments. Focused Exam Lactate Level 07/07/22 19:47: Lactic Acid Level 1.87 Objective Exam Vital Signs Date Time Temp Pulse Resp B/P (MAP) Pulse Ox O2 Delivery O2 Flow Rate FiO2 07/09/22 12:00 84 18 109/78 (88) Room Air 07/09/22 11:00 99 20 124/93 (103) Room Air 07/09/22 10:00 93 15 106/69 (81) Room Air 07/09/22 09:00 84 15 121/81 (94) 99 Room Air 07/09/22 08:00 82 13 118/83 (95) 99 Room Air 07/09/22 07:51 37.1 07/09/22 07:48 100 Room Air 07/09/22 07:00 86 07/09/22 07:00 85 13 115/79 (91) 99 Room Air 07/09/22 06:00 96 20 100 07/09/22 05:30 105/79 (87) 07/09/22 05:00 86 14 105/82 (94) 100 07/09/22 04:30 84 12 111/91 (100) 100 07/09/22 04:00 97 Room Air 07/09/22 04:00 88 14 103/76 (84) 100 07/09/22 03:30 86 13 100/71 (81) 100 07/09/22 03:00 85 13 106/68 (79) 100 07/09/22 02:30 87 46 98/80 (89) 97 07/09/22 02:00 64 14 113/81 (92) 100 Room Air 07/09/22 02:00 113/81 (90) 07/09/22 01:00 82 07/09/22 01:00 82 13 95/57 (70) 100 Room Air 07/09/22 00:00 103 14 126/93 (104) 100 Room Air 07/08/22 23:59 97 Room Air 07/08/22 23:00 113 14 124/75 (91) 99 Room Air 07/08/22 22:00 89 19 100 Room Air 07/08/22 21:00 105 25 100 Room Air 07/08/22 20:00 97 Room Air 07/08/22 20:00 37.4 07/08/22 20:00 107 25 99 Room Air 07/08/22 19:20 115 122/67 07/08/22 19:00 113 07/08/22 19:00 114 15 122/67 (85) 97 Room Air 07/08/22 18:58 98 Room Air 07/08/22 18:40 36.9 20 102/66 (78) 100 Room Air 07/08/22 18:40 Room Air 07/08/22 18:30 15 113/81 (92) 100 OxyMask 2.00 07/08/22 18:25 OxyMask 5.00 07/08/22 18:20 16 125/78 (94) 99 OxyMask 5.00 07/08/22 18:10 OxyMask 8 07/08/22 18:10 14 111/79 (90) 100 OxyMask 8 07/08/22 18:00 18 109/71 (84) 100 OxyMask 8 07/08/22 17:58 OxyMask 8 07/08/22 17:58 37.1 24 108/68 (81) 100 OxyMask 8 07/08/22 17:00 95 23 121/80 (94) 97 Room Air 07/08/22 16:00 107 12 97 Room Air 07/08/22 16:00 97 Room Air 07/08/22 15:00 109 18 113/78 (90) 90 Room Air 07/08/22 14:00 108 35 130/81 (97) 98 Room Air 07/08/22 13:00 104 I & O 07/09/22 07:00 Intake Total 2930 ml Output Total 2725 ml Balance 205 ml Capillary Refill : General Appearance: No Apparent Distress HEENT: PERRL/EOMI Neck: Full Range of Motion Respiratory: Chest Non Tender, Lungs Clear Cardiovascular: Regular Rate, Rhythm Gastrointestinal: normal bowel sounds, non tender, soft Extremity: Other (wound clean, no new areas necrosis, redness/erythema, compartments soft) Neurologic/Psychiatric: Alert, Oriented x3 Skin: Normal Color Lymphatic: No Adenopathy Results Lab Laboratory Tests 07/08/22 15:15: Sodium Level 136, Potassium Level 4.0, Chloride Level 105, Carbon Dioxide Level 22, Anion Gap 9, Blood Urea Nitrogen 47H, Creatinine 3.22#H, Estimat Glomerular Filtration Rate 25, BUN/Creatinine Ratio 15, Glucose Level 94, Calcium Level 8.6 Microbiology 07/07/22 MRSA Screen - Final, Complete MRSA not isolated 07/07/22 Urine Culture - Preliminary, Resulted NO GROWTH 07/07/22 Blood Culture - Preliminary, Resulted No growth Assessment/Plan Assessment/Plan Assess & Plan/Chief Complaint necrotizing fasciitis left lower leg s/p wide debridement and 4 compartment fasciotomy. wound vac today. ok to ambulate. cont iv abx. Clinical Quality Measures DVT/VTE Risk/Contraindication: Contraindications-Mechi: Other *list below* Other: leg cellulitis JARON CASTELLANOS MD Jul 09, 2022 12:31
[2022-07-09] MEDS: DexMEDEtomidine 250 ML DRIP 250 ML IV SCH (13:10)
--- NOTE | 2022-07-09 13:14 | Tele-ICU Consult ---
History of Present Illness History of Present Illness Date Seen by Provider: Jul 09, 2022 Time Seen by Provider: 09:46 Date of Admission History of Present Illness (Tele-ICU Physician , Progress Note ) Service provided via interactive audio and video telecommunications [facility] to a patient admitted to ICU bed in [facility]. Available chart/ vitals / labs / Images reviewed Video assessment done using teleICU camera, rest of exam as per RN Discussed with RN Events overnight : Afebrile hemodynamically stable Respiratory - I/O = Drips: lr 150 Pressors- no Consultants: Hospital course: (07/07) 36yr M admitted for SALVADOR, Infected Dog Bite to left leg and right buttock. Patient was attacked by pitbull 2 days ago. + Methamphetamines. A/P necrotizing fasciitis left lower leg -s/p wide debridement and 4 compartment fasciotomy- wound vac -Received unasyn, vanco Pain control. - Dog Bite ( wounds to bilateral lower legs and to buttock.) with cellulitus. (rabbies immune globulin and rabies vaccine given in ED Acute kidney injury - reported good UO - cont hydration - refusing blood draw - no f/up labs Avoid nephrotoxins as much as possible. Substance abuse ( + methamphet + amphetamines ) - monitor for withdrawal - received geodone Lines : periph , plansd for PICC for blood draw and abx (Central Line Necessity Reviewed) [place]: void OG: Nutrition: po Analgesia: Anxiety/ delirium VTE Prophylaxis: alexander 30 Stress Ulcer Prophylaxis: na Plans in collaboration with bedside consultants and IM MDs. Discussed with RN to reach out if any questions or concerns A total of 32 minutes of critical care time was devoted to this patient today, required to treat and/or prevent further deterioration of critical care condit ion ( as above ) . I am remotely monitoring this patient from another state. I am unable to do the bedside exam, and history/physical and pertinent information is taken from other notes in the computer and bedside staff. . Allergies and Home Medications Allergies Coded Allergies: No Known Drug Allergies (Unverified , 07/07/22) Home Medications No Active Prescriptions or Reported Meds Past Medical/Social/Family Hx Patient Social History Tobacco Use?: Yes Tobacco type used: Cigarettes Smoking Status: Current Everyday Smoker (1 ppd) Substance use?: Yes Substance type: Methamphetamine Substance frequency: Couple times a week Alcohol Use?: Yes Alcohol type: Beer Immunizations Up To Date Influenza Vaccine Up-to-Date: No; Not Current Tetanus Booster (TDap): More Than 5 Years Current Status Advance Directives: Yes Communicates: Verbally Primary Language: Khmer Preferred Spoken Language: Khmer Is interpretation needed?: No Review of Systems Constitutional: see HPI Focused Exam Lactate Level 07/07/22 19:47: Lactic Acid Level 1.87 Height, Weight, BMI Height: '" Weight: lbs. oz. kg; 22.68 BMI Method: Exam Exam Patient acknowledged, consented, and participated in this virtual visit which was conducted using real time audio/video Vital Signs Date Time Temp Pulse Resp B/P (MAP) Pulse Ox O2 Delivery O2 Flow Rate FiO2 07/09/22 13:10 88 127/97 07/09/22 13:00 85 17 108/67 (81) Room Air 07/09/22 12:00 84 18 109/78 (88) Room Air 07/09/22 11:00 99 20 124/93 (103) Room Air 07/09/22 10:00 93 15 106/69 (81) Room Air 07/09/22 09:00 84 15 121/81 (94) 99 Room Air 07/09/22 08:00 82 13 118/83 (95) 99 Room Air 07/09/22 07:51 37.1 07/09/22 07:50 99 Room Air 07/09/22 07:48 100 Room Air 07/09/22 07:00 86 07/09/22 07:00 85 13 115/79 (91) 99 Room Air 07/09/22 06:00 96 20 100 07/09/22 05:30 105/79 (87) 07/09/22 05:00 86 14 105/82 (94) 100 07/09/22 04:30 84 12 111/91 (100) 100 07/09/22 04:00 97 Room Air 07/09/22 04:00 88 14 103/76 (84) 100 07/09/22 03:30 86 13 100/71 (81) 100 07/09/22 03:00 85 13 106/68 (79) 100 07/09/22 02:30 87 46 98/80 (89) 97 07/09/22 02:00 64 14 113/81 (92) 100 Room Air 07/09/22 02:00 113/81 (90) 07/09/22 01:00 82 07/09/22 01:00 82 13 95/57 (70) 100 Room Air 07/09/22 00:00 103 14 126/93 (104) 100 Room Air 07/08/22 23:59 97 Room Air 07/08/22 23:00 113 14 124/75 (91) 99 Room Air 07/08/22 22:00 89 19 100 Room Air 07/08/22 21:00 105 25 100 Room Air 07/08/22 20:00 97 Room Air 07/08/22 20:00 37.4 07/08/22 20:00 107 25 99 Room Air 07/08/22 19:20 115 122/67 07/08/22 19:00 113 07/08/22 19:00 114 15 122/67 (85) 97 Room Air 07/08/22 18:58 98 Room Air 07/08/22 18:40 36.9 20 102/66 (78) 100 Room Air 07/08/22 18:40 Room Air 07/08/22 18:30 15 113/81 (92) 100 OxyMask 2.00 07/08/22 18:25 OxyMask 5.00 07/08/22 18:20 16 125/78 (94) 99 OxyMask 5.00 07/08/22 18:10 OxyMask 8 07/08/22 18:10 14 111/79 (90) 100 OxyMask 8 07/08/22 18:00 18 109/71 (84) 100 OxyMask 8 07/08/22 17:58 OxyMask 8 07/08/22 17:58 37.1 24 108/68 (81) 100 OxyMask 8 07/08/22 17:00 95 23 121/80 (94) 97 Room Air 07/08/22 16:00 107 12 97 Room Air 07/08/22 16:00 97 Room Air 07/08/22 15:00 109 18 113/78 (90) 90 Room Air 07/08/22 14:00 108 35 130/81 (97) 98 Room Air I & O 07/09/22 07:00 Intake Total 2930 ml Output Total 2725 ml Balance 205 ml Height & Weight Height: '" Weight: lbs. oz. kg; 22.68 BMI Method: General Appearance: No Apparent Distress HEENT: PERRL/EOMI Neck: Full Range of Motion Respiratory: Chest Non Tender, Lungs Clear Cardiovascular: Regular Rate, Rhythm Gastrointestinal: normal bowel sounds, non tender, soft Extremity: Other (wound clean, no new areas necrosis, redness/erythema, compartments soft) Neurologic/Psychiatric: Alert, Oriented x3 Skin: Normal Color Lymphatic: No Adenopathy Results Lab Laboratory Tests 07/07/22 19:47 07/08/22 04:45 07/08/22 15:15 Assessment/Plan Assessment/Plan 1 BABITA BRIGHT MD Jul 09, 2022 13:14
--- NOTE | 2022-07-09 13:30 | Progress Note - Hospitalist ---
ANAND TAMAYO 07/09/22 1330: Subjective HPI/CC On Admission Date Seen by Provider: Jul 09, 2022 Time Seen by Provider: 09:01 Danis Moura is a 36y/o M who is being seen for dog bites. Pt reports that 3 days ago he was bit by a dog on both lower legs and his right buttocks. He did not know who's dog it was. The dog ran away afterwards and pt did not make a police report or call animal control. He did not seek medical attention after the incident. In the following days the legs began to swell and become red. Presented to the ER last night due to the increasing swelling, erythema, and pain. Also was having fever and chills. Given rabies immunoglobin and rabies vaccine. Also started on antibiotics. Today her reports that the pain in his legs is a "12/10". The pain does improve w/ pain medication. Erythema has not spread and he says that the swelling has improved since admission. Denies currently having any fevers, chills, vision changes, headaches, muscle weakness, numbness, or tingling in extremities. He does have a hx of meth use. Subjective/Events-last exam Pt reports that he is still having left leg pain. No pain in right leg. Rates the pain as 15/10 when asked and says that he is in severe pain. Was agitated last night and received geodon. States that the swelling has increased in his left leg since surgery yesterday but the erythema has improved. Swelling and erythema improved in right leg according to pt. Review of Systems Musculoskeletal: leg pain (rt) Unable to obtain any other systems due to pt only wanting to answer questions about his leg pain. Focused Exam Lactate Level 07/07/22 19:47: Lactic Acid Level 1.87 Objective Exam Vital Signs Vital Signs Date Time Temp Pulse Resp B/P (MAP) Pulse Ox O2 Delivery O2 Flow Rate FiO2 07/09/22 13:14 96 07/09/22 13:10 127/97 07/09/22 13:00 17 Room Air 07/09/22 09:00 99 07/09/22 07:51 37.1 07/08/22 18:30 2.00 07/08/22 00:43 21 Capillary Refill : General Appearance: WD/WN, Mild Distress HEENT: PERRL/EOMI; No Photophobia Respiratory: Chest Non Tender, Lungs Clear, Normal Breath Sounds, No Accessory Muscle Use, No Respiratory Distress Cardiovascular: Regular Rate, Rhythm, No Murmur, Normal Peripheral Pulses Gastrointestinal: Non Tender, Soft Extremity: Calf Tenderness (left), Swelling (Left leg swollen from foot to around the knee, worse than yesterday, rt leg swelling improved), Other (Left leg had wound dressing in place, when unwrapped skin has been surgically removed from posterior calf w/ muscle tissue showing) Neurologic/Psychiatric: Alert, Oriented x3 Skin: Erythema (improving significantly on right leg, some improvement on left leg, erythema no longer appears to go past popliteal fossa on left leg) Results/Procedures Lab Laboratory Tests 07/08/22 15:15 Patient resulted labs reviewed. Imaging: Reviewed Imaging Films, Reviewed Imaging Report Assessment/Plan Assessment and Plan Assess & Plan/Chief Complaint Dog bites of right and left leg Sepsis Necrotizing fasciitis of left leg S/p wide debridement and 4 compartment fasciotomy of left leg -On Unasyn and vancomycin -WBC unknown today as pt refused labs this AM -Rabies prophylaxis done in ER -CT of left leg done showing, according to radiology, focal air that could be secondary to the dogbite with a gas-forming organism and a fair amount of fluid lies along the fascial planes overlying the posterior musculature of the calf suggesting fasciitis. -Surgery done yesterday by Dr. Angeles, wound vac ordered -wound care consulted -Pain control SALVADOR ATN -Cr improved yesterday afternoon to 3.22, no labs done yet today -Continue supplemental fluids -Continue to monitor RFTs Substance abuse -Monitor for signs of withdrawal Diet: regular Code status: full code DVT prophylaxis: Lovenox Clinical Quality Measures DVT/VTE Risk/Contraindication: Contraindications-Mechi: Other *list below* Other: leg cellulitis MIKEY CHANG MD 07/09/22 1814: Subjective HPI/CC On Admission Time Seen by Provider: 10:20 Assessment/Plan Assessment and Plan Assess & Plan/Chief Complaint Went to surgery yesterday for necrotizing fasciitis and compartment syndrome. Continue antibiotics. Await cultures. Refusing labs. Will adjust pain meds to obtain better pain control. Surgery recommending wound vac. Critical Care: Critically Ill Patient Diagnosis/Problems Diagnosis/Problems (1) Sepsis Status: Acute Qualifiers: Qualified Codes: A41.9 - Sepsis, unspecified organism; R65.20 - Severe sepsis without septic shock; N17.0 - Acute kidney failure with tubular necrosis (2) Necrotizing fasciitis of lower leg Status: Acute (3) Compartment syndrome of left lower extremity Status: Acute Qualifiers: Qualified Codes: T79.A22A - Traumatic compartment syndrome of left lower extremity, initial encounter (4) Dog bite of calf Status: Acute Qualifiers: Qualified Codes: S81.852A - Open bite, left lower leg, initial encounter; W54.0XXA - Bitten by dog, initial encounter (5) SALVADOR (acute kidney injury) Status: Acute (6) ATN (acute tubular necrosis) Status: Acute (7) Methamphetamine abuse Status: Acute Supervisory-Addendum Brief Verification & Attestation Participated in pt care: history, MDM, physical Personally performed: exam, history, MDM, supervision of care Care discussed with: Medical Student Procedures: n/a Results interpretation: Verified all documentation A medical student performed and documented this service in my presence. I reviewed and verified all information documented by the medical student and made modifications to such information, when appropriate. I personally performed the physical exam and medical decision making. ANAND TAMAYO Jul 09, 2022 13:30 MIKEY CHANG MD Jul 09, 2022 18:14
[2022-07-09] MEDS: VANCOMYCIN 500 MG/NS 100 ML IV SCH ×2 (14:06)
[2022-07-09] MEDS: ACETAMINOPHEN 325 MG TABLET PO PRN (21:22)
[2022-07-10] MEDS: ACETAMINOPHEN 325 MG TABLET PO PRN ×2 (01:40→15:01)
[2022-07-10] MEDS: AMPICILLIN/SULBACTAM INJECTION 3 GM in NS (IVPB) 100 ML IV SCH ×4 (01:41→19:27)
[2022-07-10] MEDS: DexMEDEtomidine 250 ML DRIP 250 ML IV SCH (01:41)
[2022-07-10] MEDS: NOREPINEPHRINE 8 MG/250 ML 250 ML IV SCH ×2 (02:17→18:34)
[2022-07-10 04:23] LABS: BASOPHILS % (AUTO) 0 % (0-10); EOSINOPHILS # (AUTO) 0.2 10^3/uL (0.0-0.3); EOSINOPHILS % (AUTO) 2 % (0-10); HEMATOCRIT 26 % (40-54); HEMOGLOBIN 8.8 g/dL (13.3-17.7); LYMPHOCYTES % (AUTO) 17 % (12-44); MEAN CORPUSCULAR HEMOGLOBIN 31 pg (25-34); MEAN CORPUSCULAR HGB CONC 34 g/dL (32-36); MEAN CORPUSCULAR VOLUME 92 fL (80-99); MEAN PLATELET VOLUME 10.4 fL (9.0-12.2); MONOCYTES # (AUTO) 1.1 10^3/uL (0.0-1.0); MONOCYTES % (AUTO) 10 % (0-12); NEUTROPHILS % (AUTO) 71 % (42-75); PLATELET COUNT 174 10^3/uL (130-400); WHITE BLOOD COUNT 11.4 10^3/uL (4.3-11.0)
[2022-07-10 04:42] LABS: ALBUMIN 2.3 GM/DL (3.2-4.5); BILIRUBIN,TOTAL 0.2 MG/DL (0.1-1.0); CALCIUM 8.6 MG/DL (8.5-10.1); CREATININE SERUM 1.22 MG/DL (0.60-1.30); MAGNESIUM 1.3 MG/DL (1.6-2.4); PHOSPHORUS 3.8 MG/DL (2.3-4.7); POTASSIUM 3.7 MMOL/L (3.6-5.0); TOTAL PROTEIN 5.1 GM/DL (6.4-8.2)
[2022-07-10] MEDS: KCL 20 MEQ TAB (K-DUR) PO SCH (04:44)
[2022-07-10] MEDS: POTASSIUM CL 10MEQ/50ML IVPB 50 ML IV SCH (04:44)
[2022-07-10] MEDS: MAGNESIUM 1 GM/100 ML IVPB 100 ML IV SCH ×3 (04:44→07:33)
[2022-07-10] MEDS: LACTATED RINGERS 1,000 ML IV SCH ×3 (04:59→18:29)
[2022-07-10] MEDS: DOCUSATE SODIUM 100 MG (COLACE) CAP PO SCH ×2 (08:34→19:27)
[2022-07-10] MEDS: SENNOSIDES 8.6 MG (SENOKOT) TAB PO SCH ×2 (08:34→19:27)
[2022-07-10] MEDS: ENOXAPARIN 40 MG/0.4 ML (LOVENOX) SYR SC SCH (08:35)
--- NOTE | 2022-07-10 09:05 | Tele-ICU Progress Note ---
Subjective Date Seen by a Provider: Jul 10, 2022 Subjective/Events-last exam This virtual visit was conducted using real time audio/video. Thank you for asking us to see this patient for nec. fasciitis due to dog bites, s/p debridement and 4 compartment fasciotomies. Urine tox + for amphet. Has wound vac. Recent events: none overnight PE: VSS. O2 sat 96% on RA HEENT: No obvious masses, adenopathy or JVD. Chest: clear to auscultation. CV: RRR S1 S2 No murmur or added sounds. Abd: Non-tender. Bowel sounds Y. : Unremarkable. Easton N. [employer]/psychiatric: Grossly intact. No obvious focal findings. Extremities: No edema. Capillary refill < 3 seconds. Skin: unremarkable. Results: Elevated WCC 11.1, improved. Decreased Hb 8.8, alb 2.7. Available chart/ vitals / labs / images reviewed. Video assessment done using teleICU camera, rest of exam as per RN. A/P: Critical Care: critically ill patient. Cont. abx, alexander, PRN Geodan. Wean Precedex w possible transfer later. Discussed with AUREA Hair. Asked RN to reach out to eICU if any questions or concerns later. Time spent with patient/coordination of care with other health professionals (mins): 20 Sepsis Event Evaluation Height, Weight, BMI Height: '" Weight: lbs. oz. kg; 23.28 BMI Method: Focused Exam Lactate Level 07/07/22 19:47: Lactic Acid Level 1.87 Exam Exam Patient acknowledged, consented, and participated in this virtual visit which was conducted using real time audio/video Vital Signs Date Time Temp Pulse Resp B/P (MAP) Pulse Ox O2 Delivery O2 Flow Rate FiO2 07/10/22 08:05 99 Room Air 07/10/22 08:00 64 15 131/87 (102) 99 Room Air 07/10/22 07:00 67 13 126/83 (97) 98 Room Air 07/10/22 07:00 65 07/10/22 06:08 71 16 121/84 (96) 98 Room Air 07/10/22 05:00 72 18 126/81 (96) 97 Room Air 07/10/22 04:35 37.2 Room Air 07/10/22 04:00 98 Room Air 07/10/22 04:00 77 20 124/83 (97) 96 Room Air 07/10/22 03:00 82 17 120/78 (92) 96 Room Air 07/10/22 02:16 37.9 07/10/22 02:15 37.9 07/10/22 02:00 92 27 132/86 (101) 96 Room Air 07/10/22 01:41 88 123/81 07/10/22 01:40 38.4 07/10/22 01:00 88 07/10/22 01:00 81 21 122/75 (91) 98 Room Air 07/10/22 00:36 97 Room Air 07/10/22 00:33 38.4 Room Air 07/10/22 00:00 92 27 123/81 (95) 96 Room Air 07/09/22 23:00 80 15 123/80 (94) 95 Room Air 07/09/22 22:00 93 15 125/81 (96) 95 Room Air 07/09/22 21:55 37.9 07/09/22 21:22 38.4 07/09/22 21:00 96 19 131/88 (102) Room Air 07/09/22 20:00 98 Room Air 07/09/22 20:00 96 27 123/91 (102) Room Air 07/09/22 20:00 Room Air 07/09/22 19:32 38.6 07/09/22 19:00 94 18 117/80 (92) Room Air 07/09/22 19:00 95 07/09/22 18:00 89 11 124/91 (102) Room Air 07/09/22 17:00 76 11 133/98 (110) Room Air 07/09/22 16:00 74 14 130/93 (105) Room Air 07/09/22 16:00 100 Room Air 07/09/22 15:42 36.6 07/09/22 15:00 89 135/88 (104) Room Air 07/09/22 14:00 97 22 93/85 (88) Room Air 07/09/22 13:14 96 07/09/22 13:10 88 127/97 07/09/22 13:00 85 17 108/67 (81) Room Air 07/09/22 12:00 100 Room Air 07/09/22 12:00 84 18 109/78 (88) Room Air 07/09/22 12:00 37.1 07/09/22 11:00 99 20 124/93 (103) Room Air 07/09/22 10:00 93 15 106/69 (81) Room Air 07/09/22 09:00 84 15 121/81 (94) 99 Room Air I & O 07/10/22 07:00 Intake Total 5120 ml Output Total 2850 ml Balance 2270 ml Height & Weight Height: '" Weight: lbs. oz. kg; 23.28 BMI Method: General Appearance: WD/WN, Cachetic, Mild Distress, Thin HEENT: PERRL/EOMI; No Photophobia Neck: Full Range of Motion Respiratory: Chest Non Tender, Lungs Clear, Normal Breath Sounds, No Accessory Muscle Use, No Respiratory Distress Cardiovascular: Regular Rate, Rhythm, No Edema (See free text), No Murmur, Normal Peripheral Pulses Capillary Refill: Less Than 3 Seconds Peripheral Pulses: 1+ Dorsalis Pedis (R), 1+ Left Dors-Pedis (L) Gastrointestinal: normal bowel sounds, non tender, soft Extremity: Calf Tenderness (left), Swelling (Left leg swollen from foot to around the knee, worse than yesterday, rt leg swelling improved), Other (Left leg had wound dressing in place, when unwrapped skin has been surgically removed from posterior calf w/ muscle tissue showing) Neurologic/Psychiatric: Alert, Oriented x3 Skin: Erythema (improving significantly on right leg, some improvement on left leg, erythema no longer appears to go past popliteal fossa on left leg) Lymphatic: No Adenopathy Results Lab Laboratory Tests 07/08/22 15:15 07/10/22 04:08 Assessment/Plan Assessment/Plan See free text Critical Care: Critically Ill Patient (See free text) ARIN ULLOA MD Jul 10, 2022 09:05
[2022-07-10 10:29] LABS: BASOPHILS # (AUTO) 0.1 10^3/uL (0.0-0.1); BASOPHILS % (AUTO) 1 % (0-10); EOSINOPHILS # (AUTO) 0.2 10^3/uL (0.0-0.3); EOSINOPHILS % (AUTO) 2 % (0-10); HEMATOCRIT 28 % (40-54); HEMOGLOBIN 9.4 g/dL (13.3-17.7); LYMPHOCYTES # (AUTO) 1.7 10^3/uL (1.0-4.0); LYMPHOCYTES % (AUTO) 13 % (12-44); MEAN CORPUSCULAR HEMOGLOBIN 31 pg (25-34); MEAN CORPUSCULAR HGB CONC 34 g/dL (32-36); MEAN CORPUSCULAR VOLUME 91 fL (80-99); MEAN PLATELET VOLUME 10.2 fL (9.0-12.2); MONOCYTES # (AUTO) 1.1 10^3/uL (0.0-1.0); MONOCYTES % (AUTO) 9 % (0-12); NEUTROPHILS # (AUTO) 9.8 10^3/uL (1.8-7.8); NEUTROPHILS % (AUTO) 75 % (42-75); PLATELET COUNT 197 10^3/uL (130-400)
[2022-07-10 10:44] LABS: ALBUMIN 2.4 GM/DL (3.2-4.5); POTASSIUM 3.4 MMOL/L (3.6-5.0)
[2022-07-10 10:45] LABS: CALCIUM 8.8 MG/DL (8.5-10.1)
[2022-07-10 10:46] LABS: TOTAL PROTEIN 4.9 GM/DL (6.4-8.2)
[2022-07-10 10:48] LABS: BILIRUBIN,TOTAL 0.3 MG/DL (0.1-1.0)
[2022-07-10 10:49] LABS: PHOSPHORUS 3.4 MG/DL (2.3-4.7)
[2022-07-10 10:50] LABS: CREATININE SERUM 1.05 MG/DL (0.60-1.30)
--- NOTE | 2022-07-10 10:53 | Progress Note - Surgery ---
JUVENTINO LESTER 07/10/22 1053: Subjective Date Seen by a Provider: Jul 10, 2022 Time Seen by a Provider: 10:14 Subjective/Events-last exam Pt resting in bed this morning in no acute distress. POD#2 from left leg debridement. Pt states leg is 15/10 pain and is sharp. Staying in bed. Using ba throom fine. States he has no concerns. Review of Systems General: No Chills; Fatigue HEENT: No Head Aches, No Visual Changes Pulmonary: No Dyspnea, No Cough Cardiovascular: No: Chest Pain, Palpitations Gastrointestinal: No: Diarrhea, Constipation Genitourinary: No Dysuria, No Frequency Musculoskeletal: leg pain (left leg ); No: arm pain Neurological: No: Weakness, Numbness Focused Exam Lactate Level 07/07/22 19:47: Lactic Acid Level 1.87 Objective Exam Vital Signs Date Time Temp Pulse Resp B/P (MAP) Pulse Ox O2 Delivery O2 Flow Rate FiO2 07/10/22 10:00 75 14 126/80 (95) 100 Room Air 07/10/22 09:00 93 122/83 (96) 100 Room Air 07/10/22 08:05 99 Room Air 07/10/22 08:00 64 15 131/87 (102) 99 Room Air 07/10/22 07:00 67 13 126/83 (97) 98 Room Air 07/10/22 07:00 65 07/10/22 06:08 71 16 121/84 (96) 98 Room Air 07/10/22 05:00 72 18 126/81 (96) 97 Room Air 07/10/22 04:35 37.2 Room Air 07/10/22 04:00 98 Room Air 07/10/22 04:00 77 20 124/83 (97) 96 Room Air 07/10/22 03:00 82 17 120/78 (92) 96 Room Air 07/10/22 02:16 37.9 07/10/22 02:15 37.9 07/10/22 02:00 92 27 132/86 (101) 96 Room Air 07/10/22 01:41 88 123/81 07/10/22 01:40 38.4 07/10/22 01:00 88 07/10/22 01:00 81 21 122/75 (91) 98 Room Air 07/10/22 00:36 97 Room Air 07/10/22 00:33 38.4 Room Air 07/10/22 00:00 92 27 123/81 (95) 96 Room Air 07/09/22 23:00 80 15 123/80 (94) 95 Room Air 07/09/22 22:00 93 15 125/81 (96) 95 Room Air 07/09/22 21:55 37.9 07/09/22 21:22 38.4 07/09/22 21:00 96 19 131/88 (102) Room Air 07/09/22 20:00 98 Room Air 07/09/22 20:00 96 27 123/91 (102) Room Air 07/09/22 20:00 Room Air 07/09/22 19:32 38.6 07/09/22 19:00 94 18 117/80 (92) Room Air 07/09/22 19:00 95 07/09/22 18:00 89 11 124/91 (102) Room Air 07/09/22 17:00 76 11 133/98 (110) Room Air 07/09/22 16:00 74 14 130/93 (105) Room Air 07/09/22 16:00 100 Room Air 07/09/22 15:42 36.6 07/09/22 15:00 89 135/88 (104) Room Air 07/09/22 14:00 97 22 93/85 (88) Room Air 07/09/22 13:14 96 07/09/22 13:10 88 127/97 07/09/22 13:00 85 17 108/67 (81) Room Air 07/09/22 12:00 100 Room Air 07/09/22 12:00 84 18 109/78 (88) Room Air 07/09/22 12:00 37.1 07/09/22 11:00 99 20 124/93 (103) Room Air I & O 07/10/22 07:00 Intake Total 5120 ml Output Total 2850 ml Balance 2270 ml Capillary Refill : Less Than 3 Seconds General Appearance: WD/WN, Cachetic, Mild Distress, Thin HEENT: PERRL/EOMI; No Photophobia Neck: Full Range of Motion, Non Tender Respiratory: Chest Non Tender, Lungs Clear, Normal Breath Sounds, No Accessory Muscle Use, No Respiratory Distress Cardiovascular: Regular Rate, Rhythm, No Edema, No Murmur, Normal Peripheral Pulses Peripheral Pulses: 1+ Dorsalis Pedis (R), 1+ Left Dors-Pedis (L); 2+ Radial Pulses (R), 2+ Radial Pulses (L) Gastrointestinal: normal bowel sounds, non tender, soft Extremity: Calf Tenderness (left), Inflammation (erythema of left leg), Swelling (Left leg swollen from foot to around the knee, ), Other (wound vac in plasce on posterolateral left leg) Neurologic/Psychiatric: Alert, Oriented x3 Skin: Erythema (left leg from ankle to knee) Lymphatic: No Adenopathy Results Lab Laboratory Tests 07/10/22 04:08: White Blood Count 11.4H, Red Blood Count 2.86L, Hemoglobin 8.8L, Hematocrit 26L, Mean Corpuscular Volume 92, Mean Corpuscular Hemoglobin 31, Mean Corpuscular Hemoglobin Concent 34, Red Cell Distribution Width 13.6, Platelet Count 174, Mean Platelet Volume 10.4, Immature Granulocyte % (Auto) 1, Neutrophils (%) (Auto) 71, Lymphocytes (%) (Auto) 17, Monocytes (%) (Auto) 10, Eosinophils (%) (Auto) 2, Basophils (%) (Auto) 0, Neutrophils # (Auto) 8.0H, Lymphocytes # (Auto) 2.0, Monocytes # (Auto) 1.1H, Eosinophils # (Auto) 0.2, Basophils # (Auto) 0.0, Immature Granulocyte # (Auto) 0.1, Sodium Level 140, Potassium Level 3.7, Chloride Level 107, Carbon Dioxide Level 24, Anion Gap 9, Blood Urea Nitrogen 22H, Creatinine 1.22, Estimat Glomerular Filtration Rate 79, BUN/Creatinine Ratio 18, Glucose Level 105, Calcium Level 8.6, Corrected Calcium 10.0, Phosphorus Level 3.8, Magnesium Level 1.3L, Total Bilirubin 0.2, Aspartate Amino Transf (AST/SGOT) 21, Alanine Aminotransferase (ALT/SGPT) 20, Alkaline Phosphatase 51, Total Protein 5.1L, Albumin 2.3L Microbiology 07/08/22 Gram Stain - Final, Resulted 07/08/22 Anaerobic Culture, Resulted Pending 07/08/22 Surgical Culture - Preliminary, Resulted Staphylococcus aureus Streptococcus pyogenes Grp A 07/07/22 MRSA Screen - Final, Complete MRSA not isolated 07/07/22 Urine Culture - Final, Complete NO GROWTH 07/07/22 Blood Culture - Preliminary, Resulted No growth Assessment/Plan Assessment/Plan Assessment/Plan necrotizing fasciitis left lower leg s/p wide debridement and 4 compartment fasciotomy. POD#2 ok to ambulate. cont iv abx. Clinical Quality Measures DVT/VTE Risk/Contraindication: Contraindications-Mechi: Other *list below* Other: leg cellulitis NELSON GUERRA DO 07/10/22 1514: Subjective Time Seen by a Provider: 12:09 Subjective/Events-last exam Pt seen and examined, answers some questions but is sleepy and mumbles. No new complaints. Review of Systems General: Fatigue Pulmonary: No Dyspnea, No Cough Cardiovascular: No: Chest Pain, Palpitations Gastrointestinal: No: Diarrhea, Constipation Musculoskeletal: leg pain (left leg ) Objective Exam General Appearance: Cachetic, Mild Distress, Thin Respiratory: Chest Non Tender, Lungs Clear, Normal Breath Sounds, No Accessory Muscle Use, No Respiratory Distress Cardiovascular: Regular Rate, Rhythm, No Murmur Extremity: Calf Tenderness (left), Inflammation (erythema of left leg), Swelling (Left leg swollen from foot to around the knee, ), Other (wound vac in plasce on posterolateral left leg) Assessment/Plan Assessment/Plan Assessment/Plan necrotizing fasciitis left lower leg s/p wide debridement and 4 compartment fasciotomy. POD#2 ok to ambulate, cont iv abx, wound VAC change tuesday. Supervisory-Addendum Brief Verification & Attestation Participated in pt care: history, MDM, physical Personally performed: exam, history, MDM, supervision of care Care discussed with: Medical Student Procedures: n/a Verification and Attestation of Medical Student E/M Service A medical student performed and documented this service. I then reviewed and verified all information documented by the medical student and made modifications to such information, when appropriate. I personally performed a physical exam, medical decision making and then discussed any differences b etween the notes and made revisions as necessary to create one note. Nelson Guerra , 07/10/22 , 15:13 JUVENTINO LESTER Jul 10, 2022 10:53 NELSON GUERRA DO Jul 10, 2022 15:14
[2022-07-10] MEDS ORDERED: TROUGH ORDER-PHARMACY XX ONE (12:00)
[2022-07-10] MEDS: LORazepam 0.5 MG (ATIVAN) TABLET PO PRN ×2 (13:31→19:27)
[2022-07-10] MEDS: NS IV 1000 ML 1,000 ML IV SCH (13:45)
[2022-07-10] MEDS: VANCOMYCIN 500 MG/NS 100 ML IV SCH ×2 (14:50)
[2022-07-10] MEDS ORDERED: NS IV 1000 ML 1,000 ML IV SCH (17:30)
--- NOTE | 2022-07-10 17:34 | Progress Note - Hospitalist ---
Subjective HPI/CC On Admission Date Seen by Provider: Jul 10, 2022 Time Seen by Provider: 09:30 Danis Moura is a 36y/o M who is being seen for dog bites. Pt reports that 3 days ago he was bit by a dog on both lower legs and his right buttocks. He did not know who's dog it was. The dog ran away afterwards and pt did not make a p giuseppeice report or call animal control. He did not seek medical attention after the incident. In the following days the legs began to swell and become red. Presented to the ER last night due to the increasing swelling, erythema, and pain. Also was having fever and chills. Given rabies immunoglobin and rabies vaccine. Also started on antibiotics. Today her reports that the pain in his legs is a "08/07". The pain does improve w/ pain medication. Erythema has not spread and he says that the swelling has improved since admission. Denies currently having any fevers, chills, vision changes, headaches, muscle weakness, numbness, or tingling in extremities. He does have a hx of meth use. Subjective/Events-last exam His pain is improving. He slept last night. He has no complaints. Focused Exam Lactate Level 07/07/22 19:47: Lactic Acid Level 1.87 Objective Exam Vital Signs Vital Signs Date Time Temp Pulse Resp B/P (MAP) Pulse Ox O2 Delivery O2 Flow Rate FiO2 07/10/22 16:00 82 122/71 (88) 98 Room Air 07/10/22 15:01 38.1 07/10/22 15:00 16 07/08/22 18:30 2.00 07/08/22 00:43 21 Capillary Refill : Less Than 3 Seconds General Appearance: No Apparent Distress, WD/WN Respiratory: Lungs Clear, No Respiratory Distress Cardiovascular: Regular Rate, Rhythm, No Murmur Gastrointestinal: Normal Bowel Sounds, Soft Extremity: Calf Tenderness, Inflammation, Swelling Neurologic/Psychiatric: Alert, Depressed Affect Results/Procedures Lab Laboratory Tests 07/10/22 04:08 Patient resulted labs reviewed. Imaging: Reviewed Imaging Films, Reviewed Imaging Report Assessment/Plan Assessment and Plan Assess & Plan/Chief Complaint Sepsis Dog bite Necrotizing fasciitis of left leg Compartment syndrome Surgery following Continue antibiotics Continue IV fluids Wound vac Pain regimen Weaning Precedex SALVADOR ATN Improviing, near normal today Decrease fluid rate Substance abuse Monitor DVT prophylaxis: Lovenox Critical Care Critically Ill Patient (See free text) Diagnosis/Problems Diagnosis/Problems (1) Sepsis Status: Acute Qualifiers: Sepsis type: sepsis due to unspecified organism Sepsis acute organ dysfunction status: with acute organ dysfunction Severe sepsis acute organ dysfunction type: acute renal failure Acute renal failure type: with acute tubular necrosis Severe sepsis shock status: without septic shock Qualified Codes: A41.9 - Sepsis, unspecified organism; R65.20 - Severe sepsis without septic shock; N17.0 - Acute kidney failure with tubular necrosis (2) Necrotizing fasciitis of lower leg Status: Acute (3) Compartment syndrome of left lower extremity Status: Acute Qualifiers: Encounter type: initial encounter Qualified Codes: T79.A22A - Traumatic compartment syndrome of left lower extremity, initial encounter (4) Dog bite of calf Status: Acute Qualifiers: Encounter type: initial encounter Laterality: left Qualified Codes: S81.852A - Open bite, left lower leg, initial encounter; W54.0XXA - Bitten by dog, initial encounter (5) SALVADOR (acute kidney injury) Status: Acute (6) ATN (acute tubular necrosis) Status: Acute (7) Methamphetamine abuse Status: Acute Clinical Quality Measures DVT/VTE Risk/Contraindication: Contraindications-Mechi: Other *list below* Other: leg cellulitis MIKEY CHANG MD Jul 10, 2022 17:34
[2022-07-10] MEDS: morphine INJ 4 MG/ML 1 ML (VIAL/SYRINGE) IV PRN (19:27)
[2022-07-11] MEDS: AMPICILLIN/SULBACTAM INJECTION 3 GM in NS (IVPB) 100 ML IV SCH ×4 (01:54→20:19)
[2022-07-11] MEDS: LORazepam 0.5 MG (ATIVAN) TABLET PO PRN ×2 (03:52→20:19)
[2022-07-11] MEDS: morphine INJ 4 MG/ML 1 ML (VIAL/SYRINGE) IV PRN ×2 (04:25→12:38)
[2022-07-11] MEDS: LACTATED RINGERS 1,000 ML IV SCH (04:27)
[2022-07-11 04:32] LABS: BASOPHILS # (AUTO) 0.1 10^3/uL (0.0-0.1); BASOPHILS % (AUTO) 0 % (0-10); EOSINOPHILS # (AUTO) 0.2 10^3/uL (0.0-0.3); EOSINOPHILS % (AUTO) 1 % (0-10); HEMATOCRIT 28 % (40-54); HEMOGLOBIN 9.6 g/dL (13.3-17.7); LYMPHOCYTES # (AUTO) 2.5 10^3/uL (1.0-4.0); LYMPHOCYTES % (AUTO) 17 % (12-44); MEAN CORPUSCULAR HEMOGLOBIN 31 pg (25-34); MEAN CORPUSCULAR HGB CONC 35 g/dL (32-36); MEAN CORPUSCULAR VOLUME 89 fL (80-99); MEAN PLATELET VOLUME 9.9 fL (9.0-12.2); MONOCYTES # (AUTO) 1.9 10^3/uL (0.0-1.0); MONOCYTES % (AUTO) 13 % (0-12); NEUTROPHILS # (AUTO) 9.7 10^3/uL (1.8-7.8); NEUTROPHILS % (AUTO) 67 % (42-75); PLATELET COUNT 240 10^3/uL (130-400); WHITE BLOOD COUNT 14.5 10^3/uL (4.3-11.0)
[2022-07-11 04:50] LABS: ALBUMIN 2.5 GM/DL (3.2-4.5); BILIRUBIN,TOTAL 0.3 MG/DL (0.1-1.0); CALCIUM 8.5 MG/DL (8.5-10.1); CREATININE SERUM 0.94 MG/DL (0.60-1.30); MAGNESIUM 1.3 MG/DL (1.6-2.4); POTASSIUM 3.2 MMOL/L (3.6-5.0); TOTAL PROTEIN 5.6 GM/DL (6.4-8.2)
[2022-07-11] MEDS: MAGNESIUM 1 GM/100 ML IVPB 100 ML IV SCH ×3 (05:11→08:47)
[2022-07-11] MEDS: POTASSIUM CL 10MEQ/50ML IVPB 50 ML IV SCH (05:11)
[2022-07-11] MEDS: KCL 20 MEQ TAB (K-DUR) PO SCH (05:11)
[2022-07-11] MEDS ORDERED: KCL 20 MEQ TAB (K-DUR) PO ONE ×2 (08:00→10:00)
--- NOTE | 2022-07-11 08:28 | Tele-ICU Progress Note ---
Progress Note video rounds completed 36 y/o bitten by melvin and sustained necrotizing fasciitis of left lower extremity POD 3 s/p debridement. PE: pulse:96 O2 sat 97% BP: 132.82 On vanc and amp/sulbactan Surgery following No new issues Focused Exam Height, Weight, BMI Height: '" Weight: lbs. oz. kg; 23.40 BMI Method: Labs Laboratory Tests 07/11/22 04:21 Results Labs Labs Laboratory Tests 07/10/22 13:30: Vancomycin Level Trough 2.1L 07/11/22 04:21: White Blood Count 14.5H, Red Blood Count 3.09L, Hemoglobin 9.6L, Hematocrit 28L, Mean Corpuscular Volume 89, Mean Corpuscular Hemoglobin 31, Mean Corpuscular Hemoglobin Concent 35, Red Cell Distribution Width 13.3, Platelet Count 240, Mean Platelet Volume 9.9, Immature Granulocyte % (Auto) 1, Neutrophils (%) (Auto) 67, Lymphocytes (%) (Auto) 17, Monocytes (%) (Auto) 13H, Eosinophils (%) (Auto) 1, Basophils (%) (Auto) 0, Neutrophils # (Auto) 9.7H, Lymphocytes # (Auto) 2.5, Monocytes # (Auto) 1.9H, Eosinophils # (Auto) 0.2, Basophils # (Auto) 0.1, Immature Granulocyte # (Auto) 0.2H, Sodium Level 138, Potassium Level 3.2L, Chloride Level 100, Carbon Dioxide Level 25, Anion Gap 13, Blood Urea Nitrogen 17, Creatinine 0.94, Estimat Glomerular Filtration Rate 108, BUN/Creatinine Ratio 18, Glucose Level 97, Calcium Level 8.5, Corrected Calcium 9.7, Phosphorus Level 3.0, Magnesium Level 1.3L, Total Bilirubin 0.3, Aspartate Amino Transf (AST/SGOT) 18, Alanine Aminotransferase (ALT/SGPT) 19, Alkaline Phosphatase 51, Total Protein 5.6L, Albumin 2.5L Microbiology 07/08/22 Gram Stain - Final, Resulted 07/08/22 Anaerobic Culture, Resulted Pending 07/08/22 Surgical Culture - Preliminary, Resulted Staphylococcus aureus Streptococcus pyogenes Grp A 07/07/22 MRSA Screen - Final, Complete MRSA not isolated 07/07/22 Urine Culture - Final, Complete NO GROWTH 07/07/22 Blood Culture - Preliminary, Resulted No growth Results Results/Procedures Labs Laboratory Tests 07/09/22 10:20 07/10/22 04:08 07/11/22 04:21 Patient resulted labs reviewed. Imaging: Reviewed Imaging Films, Reviewed Imaging Report NICO GALEANO MD Jul 11, 2022 08:28
[2022-07-11] MEDS: ENOXAPARIN 40 MG/0.4 ML (LOVENOX) SYR SC SCH (09:19)
[2022-07-11] MEDS: SENNOSIDES 8.6 MG (SENOKOT) TAB PO SCH ×2 (09:20→20:19)
[2022-07-11] MEDS: DOCUSATE SODIUM 100 MG (COLACE) CAP PO SCH ×2 (09:20→20:19)
[2022-07-11] MEDS: ACETAMINOPHEN 325 MG TABLET PO PRN ×2 (10:01→19:04)
--- NOTE | 2022-07-11 10:34 | Progress Note - Surgery ---
FRANCISCO JAIMES 07/11/22 1033: Subjective Date Seen by a Provider: Jul 11, 2022 Time Seen by a Provider: 10:28 Subjective/Events-last exam Patient resting comfortably in bed and eating. States his pain is under control w/ pain medications but that he does have some breakthrough pain when it gets close to dosing time. Patient states his leg appears more red and swollen today to him. Patient did state he has some chills last night. Patient states he has had a bowel movement since sgy. Denies anuria, dysuria, hematuria. Review of Systems General: Chills; No Night Sweats HEENT: No Head Aches, No Visual Changes Pulmonary: No Dyspnea, No Cough Cardiovascular: No: Chest Pain, Palpitations Gastrointestinal: No: Nausea, Vomiting, Abdominal Pain, Diarrhea, Constipation Genitourinary: No Dysuria, No Frequency, No Incontinence, No Hematuria Musculoskeletal: leg pain, foot pain Neurological: No: Weakness, Numbness Objective Exam Vital Signs Date Time Temp Pulse Resp B/P (MAP) Pulse Ox O2 Delivery O2 Flow Rate FiO2 07/11/22 10:01 38.0 07/11/22 10:00 98 18 132/87 (102) 99 Room Air 07/11/22 09:00 103 24 130/88 (102) 96 Room Air 07/11/22 08:00 64 15 131/87 (102) 99 Room Air 07/11/22 07:00 67 13 126/83 (97) 98 Room Air 07/11/22 07:00 94 07/11/22 06:00 98 22 164/109 (127) 97 Room Air 07/11/22 05:00 74 15 134/81 (98) 96 Room Air 07/11/22 04:00 98 Room Air 07/11/22 03:00 37.6 Room Air 07/11/22 03:00 63 15 114/62 (79) 95 Room Air 07/11/22 02:00 80 18 131/87 (102) 95 Room Air 07/11/22 01:00 75 16 128/78 (95) 94 Room Air 07/11/22 01:00 88 07/11/22 00:00 96 16 130/88 (102) 95 Room Air 07/11/22 00:00 97 Room Air 07/10/22 23:00 85 19 125/81 (96) 99 Room Air 07/10/22 22:44 37.2 Room Air 07/10/22 22:00 81 16 130/78 (95) 98 Room Air 07/10/22 21:37 98 Room Air 07/10/22 21:00 75 14 130/79 (96) 100 Room Air 07/10/22 20:00 74 23 123/79 (94) 99 Room Air 07/10/22 20:00 98 Room Air 07/10/22 19:30 37.4 Room Air 07/10/22 19:00 90 07/10/22 19:00 81 23 125/81 (96) 99 Room Air 07/10/22 18:19 37.3 07/10/22 18:00 89 6 121/70 (87) 96 Room Air 07/10/22 17:00 90 19 126/75 (92) 97 Room Air 07/10/22 16:00 99 Room Air 07/10/22 16:00 82 122/71 (88) 98 Room Air 07/10/22 15:31 37.9 07/10/22 15:01 38.1 07/10/22 15:00 84 16 117/76 (90) 93 Room Air 07/10/22 14:00 79 17 134/90 (105) Room Air 07/10/22 13:00 71 15 136/94 (108) Room Air 07/10/22 12:30 76 07/10/22 12:00 77 22 122/83 (96) Room Air 07/10/22 12:00 98 Room Air 07/10/22 11:00 74 14 121/87 (98) Room Air 07/10/22 10:37 Room Air I & O 07/11/22 07:00 Intake Total 2990 ml Output Total 4795 ml Balance -1805 ml Capillary Refill : Less Than 3 Seconds General Appearance: No Apparent Distress, WD/WN HEENT: PERRL/EOMI; No Photophobia Neck: Full Range of Motion, Non Tender Respiratory: Lungs Clear, Normal Breath Sounds, No Accessory Muscle Use, No Respiratory Distress Cardiovascular: Regular Rate, Rhythm, No Murmur, Normal Peripheral Pulses (Dorsalis pedis bilat) Peripheral Pulses: 1+ Dorsalis Pedis (R), 1+ Left Dors-Pedis (L); 2+ Radial Pulses (R), 2+ Radial Pulses (L) Gastrointestinal: normal bowel sounds, non tender, soft Extremity: Calf Tenderness, Inflammation (appears more erythematous today, warm to touch. ), Swelling, Other (Wound vac in place and turned on. ) Neurologic/Psychiatric: Alert, Oriented x3 Skin: Warm/Dry, Erythema (LLE, appears slightly worse from yesterday ) Lymphatic: No Adenopathy Results Lab Laboratory Tests 07/10/22 13:30: Vancomycin Level Trough 2.1L 07/11/22 04:21: White Blood Count 14.5H, Red Blood Count 3.09L, Hemoglobin 9.6L, Hematocrit 28L, Mean Corpuscular Volume 89, Mean Corpuscular Hemoglobin 31, Mean Corpuscular H emoglobin Concent 35, Red Cell Distribution Width 13.3, Platelet Count 240, Mean Platelet Volume 9.9, Immature Granulocyte % (Auto) 1, Neutrophils (%) (Auto) 67, Lymphocytes (%) (Auto) 17, Monocytes (%) (Auto) 13H, Eosinophils (%) (Auto) 1, Basophils (%) (Auto) 0, Neutrophils # (Auto) 9.7H, Lymphocytes # (Auto) 2.5, Monocytes # (Auto) 1.9H, Eosinophils # (Auto) 0.2, Basophils # (Auto) 0.1, Immature Granulocyte # (Auto) 0.2H, Sodium Level 138, Potassium Level 3.2L, Chloride Level 100, Carbon Dioxide Level 25, Anion Gap 13, Blood Urea Nitrogen 17, Creatinine 0.94, Estimat Glomerular Filtration Rate 108, BUN/Creatinine Ratio 18, Glucose Level 97, Calcium Level 8.5, Corrected Calcium 9.7, Phosphorus Level 3.0, Magnesium Level 1.3L, Total Bilirubin 0.3, Aspartate Amino Transf (AST/SGOT) 18, Alanine Aminotransferase (ALT/SGPT) 19, Alkaline Phosphatase 51, Total Protein 5.6L, Albumin 2.5L Microbiology 07/08/22 Gram Stain - Final, Resulted 07/08/22 Anaerobic Culture, Resulted Pending 07/08/22 Surgical Culture - Preliminary, Resulted Staphylococcus aureus Streptococcus pyogenes Grp A 07/07/22 MRSA Screen - Final, Complete MRSA not isolated 07/07/22 Urine Culture - Final, Complete NO GROWTH 07/07/22 Blood Culture - Preliminary, Resulted No growth Assessment/Plan Assessment/Plan Assessment/Plan necrotizing fasciitis left lower leg s/p wide debridement and 4 compartment fasciotomy. POD#3 MRSA Animal bite Leukocytosis - 11.4 yesterday -> 14.5 today IV Abx and IVF - Patient grew MRSA sensitive to Vanc Ambulation, IS, frequent up and OOB Given patient's worsening erythema of LE and increased WBC count from yesterday, will plan on changing wound vac today so surgical lesions can be observed for any area of irritation, erythema, or necrosis to make sure no more surgical intervention is warranted. Clinical Quality Measures DVT/VTE Risk/Contraindication: Contraindications-Mechi: Other *list below* Other: leg cellulitis NELSON GUERRA DO 07/11/22 1451: Subjective Time Seen by a Provider: 12:13 Subjective/Events-last exam Pt seen and examined, minimal pain but thinks leg might be worse and he had chills last night. Review of Systems General: Chills; No Night Sweats Pulmonary: No Dyspnea, No Cough Cardiovascular: No: Chest Pain, Palpitations Gastrointestinal: No: Nausea, Vomiting, Abdominal Pain Objective Exam General Appearance: No Apparent Distress HEENT: PERRL/EOMI Respiratory: Lungs Clear, Normal Breath Sounds, No Accessory Muscle Use, No Respiratory Distress Cardiovascular: Regular Rate, Rhythm, No Murmur Extremity: Calf Tenderness, Inflammation (appears more erythematous today, warm to touch. ), Swelling, Other (Wound vac taking down, good granulation tissue, small spots of necrotic tissue but don't need debridement) Assessment/Plan Assessment/Plan Assessment/Plan necrotizing fasciitis left lower leg s/p wide debridement and 4 compartment fasciotomy. POD#3 MRSA Animal bite Leukocytosis - 11.4 yesterday -> 14.5 today IV Abx and IVF - Patient grew MRSA sensitive to Vanc Ambulation, IS, frequent up and OOB Wound vac taken down, will leave and do wet-to dry and possibly place Vari-flow wound VAC tomorrow. Elevate leg. Supervisory-Addendum Brief Verification & Attestation Participated in pt care: history, MDM, physical Personally performed: exam, history, MDM, supervision of care Care discussed with: Medical Student Procedures: n/a Verification and Attestation of Medical Student E/M Service A medical student performed and documented this service. I then reviewed and verified all information documented by the medical student and made modificati ons to such information, when appropriate. I personally performed a physical exam, medical decision making and then discussed any differences between the notes and made revisions as necessary to create one note. Nelson Guerra , 07/11/22 , 14:51 FRANCISCO JAIMES Jul 11, 2022 10:33 NELSON GUERRA DO Jul 11, 2022 14:51
[2022-07-11] MEDS: NOREPINEPHRINE 8 MG/250 ML 250 ML IV SCH (11:07)
[2022-07-11] MEDS: fentaNYL INJ 100 MCG/2 ML AMP IVP PRN (12:28)
[2022-07-11] MEDS ORDERED: NICOTINE 21 MG (NICODERM) PATCH TD ONE (13:00)
[2022-07-11] MEDS: VANCOMYCIN 500 MG/NS 100 ML IV SCH ×2 (13:01)
--- NOTE | 2022-07-11 18:58 | Progress Note - Hospitalist ---
Subjective HPI/CC On Admission Date Seen by Provider: Jul 11, 2022 Time Seen by Provider: 10:00 Danis Moura is a 36y/o M who is being seen for dog bites. Pt reports that 3 days ago he was bit by a dog on both lower legs and his right buttocks. He did not know who's dog it was. The dog ran away afterwards and pt did not make a p giuseppeice report or call animal control. He did not seek medical attention after the incident. In the following days the legs began to swell and become red. Presented to the ER last night due to the increasing swelling, erythema, and pain. Also was having fever and chills. Given rabies immunoglobin and rabies vaccine. Also started on antibiotics. Today her reports that the pain in his legs is a "12/10". The pain does improve w/ pain medication. Erythema has not spread and he says that the swelling has improved since admission. Denies currently having any fevers, chills, vision changes, headaches, muscle weakness, numbness, or tingling in extremities. He does have a hx of meth use. Subjective/Events-last exam He is having more pain today. He is also having worsening redness and swelling. He continues to have fevers. Objective Exam Vital Signs Vital Signs Date Time Temp Pulse Resp B/P (MAP) Pulse Ox O2 Delivery O2 Flow Rate FiO2 07/11/22 18:00 98 18 139/98 (112) 99 Room Air 07/11/22 10:31 37.3 07/08/22 18:30 2.00 07/08/22 00:43 21 Capillary Refill : Less Than 3 Seconds General Appearance: WD/WN, Mild Distress (uncomfortable) Respiratory: Lungs Clear, No Respiratory Distress Cardiovascular: Regular Rate, Rhythm, No Murmur Gastrointestinal: Normal Bowel Sounds, Soft Extremity: Other (left leg red, swollen, tender, wound vac in place) Neurologic/Psychiatric: Alert, Depressed Affect Results/Procedures Lab Laboratory Tests 07/11/22 04:21 Patient resulted labs reviewed. Imaging: Reviewed Imaging Films, Reviewed Imaging Report Assessment/Plan Assessment and Plan Assess & Plan/Chief Complaint Sepsis Dog bite Necrotizing fasciitis of left leg Compartment syndrome Surgery following Continue antibiotics Stop IV fluids Wound vac Pain regimen SALVADOR ATN Resolved Stop fluids Substance abuse Monitor DVT prophylaxis: Lovenox Critical Care Critically Ill Patient (See free text) Diagnosis/Problems Diagnosis/Problems (1) Sepsis Status: Acute Qualifiers: Sepsis type: sepsis due to unspecified organism Sepsis acute organ dysfunction status: with acute organ dysfunction Severe sepsis acute organ dysfunction type: acute renal failure Acute renal failure type: with acute tubular necrosis Severe sepsis shock status: without septic shock Qualified Codes: A41.9 - Sepsis, unspecified organism; R65.20 - Severe sepsis without septic shock; N17.0 - Acute kidney failure with tubular necrosis (2) Necrotizing fasciitis of lower leg Status: Acute (3) Compartment syndrome of left lower extremity Status: Acute Qualifiers: Encounter type: initial encounter Qualified Codes: T79.A22A - Traumatic compartment syndrome of left lower extremity, initial encounter (4) Dog bite of calf Status: Acute Qualifiers: Encounter type: initial encounter Laterality: left Qualified Codes: S8 1.852A - Open bite, left lower leg, initial encounter; W54.0XXA - Bitten by dog, initial encounter (5) SALVADOR (acute kidney injury) Status: Acute (6) ATN (acute tubular necrosis) Status: Acute (7) Methamphetamine abuse Status: Acute Clinical Quality Measures DVT/VTE Risk/Contraindication: Contraindications-Mechi: Other *list below* Other: leg cellulitis MIKEY CHANG MD Jul 11, 2022 18:58
[2022-07-12] MEDS: AMPICILLIN/SULBACTAM INJECTION 3 GM in NS (IVPB) 100 ML IV SCH ×2 (02:17→08:20)
[2022-07-12 05:28] LABS: BASOPHILS # (AUTO) 0.1 10^3/uL (0.0-0.1); BASOPHILS % (AUTO) 0 % (0-10); EOSINOPHILS # (AUTO) 0.3 10^3/uL (0.0-0.3); EOSINOPHILS % (AUTO) 3 % (0-10); HEMATOCRIT 33 % (40-54); HEMOGLOBIN 11.1 g/dL (13.3-17.7); LYMPHOCYTES # (AUTO) 2.2 10^3/uL (1.0-4.0); LYMPHOCYTES % (AUTO) 18 % (12-44); MEAN CORPUSCULAR HEMOGLOBIN 30 pg (25-34); MEAN CORPUSCULAR HGB CONC 34 g/dL (32-36); MEAN CORPUSCULAR VOLUME 89 fL (80-99); MEAN PLATELET VOLUME 9.4 fL (9.0-12.2); MONOCYTES # (AUTO) 1.8 10^3/uL (0.0-1.0); MONOCYTES % (AUTO) 15 % (0-12); NEUTROPHILS # (AUTO) 7.6 10^3/uL (1.8-7.8); NEUTROPHILS % (AUTO) 62 % (42-75); PLATELET COUNT 284 10^3/uL (130-400); WHITE BLOOD COUNT 12.2 10^3/uL (4.3-11.0)
[2022-07-12] MEDS: NOREPINEPHRINE 8 MG/250 ML 250 ML IV SCH ×2 (05:41→20:25)
[2022-07-12 05:55] LABS: ALBUMIN 2.7 GM/DL (3.2-4.5); BILIRUBIN,TOTAL 0.2 MG/DL (0.1-1.0); CALCIUM 8.6 MG/DL (8.5-10.1); CREATININE SERUM 0.83 MG/DL (0.60-1.30); MAGNESIUM 1.6 MG/DL (1.6-2.4); PHOSPHORUS 2.7 MG/DL (2.3-4.7); POTASSIUM 3.6 MMOL/L (3.6-5.0)
[2022-07-12] MEDS: POTASSIUM CL 10MEQ/50ML IVPB 50 ML IV SCH (06:05)
[2022-07-12] MEDS: MAGNESIUM 1 GM/100 ML IVPB 100 ML IV SCH (06:06)
[2022-07-12] MEDS: KCL 20 MEQ TAB (K-DUR) PO SCH (06:07)
[2022-07-12] MEDS ORDERED: KCL 20 MEQ TAB (K-DUR) PO ONE (08:00)
[2022-07-12] MEDS: DOCUSATE SODIUM 100 MG (COLACE) CAP PO SCH ×2 (08:12→20:58)
[2022-07-12] MEDS: NICOTINE 21 MG (NICODERM) PATCH TD SCH (08:12)
[2022-07-12] MEDS: morphine IMMEDIATE RELEASE 15 MG TABLET PO PRN (08:12)
[2022-07-12] MEDS: SENNOSIDES 8.6 MG (SENOKOT) TAB PO SCH ×2 (08:13→20:59)
[2022-07-12] MEDS: ENOXAPARIN 40 MG/0.4 ML (LOVENOX) SYR SC SCH (09:00)
[2022-07-12] MEDS ORDERED: VANCOMYCIN 2000 MG/NS 500 ML IVPB IV NR ×2 (09:00)
--- NOTE | 2022-07-12 09:11 | Progress Note - Hospitalist ---
Subjective HPI/CC On Admission Date Seen by Provider: Jul 12, 2022 Danis Moura is a 36y/o M who is being seen for dog bites. Pt reports that 3 days ago he was bit by a dog on both lower legs and his right buttocks. He did not know who's dog it was. The dog ran away afterwards and pt did not make a police report or call animal control. He did not seek medical attention after the incident. In the following days the legs began to swell and become red. Presented to the ER last night due to the increasing swelling, erythema, and pain. Also was having fever and chills. Given rabies immunoglobin and rabies vaccine. Also started on antibiotics. Today her reports that the pain in his legs is a "12/10". The pain does improve w/ pain medication. Erythema has not spread and he says that the swelling has improved since admission. Denies currently having any fevers, chills, vision changes, headaches, muscle weakness, numbness, or tingling in extremities. He does have a hx of meth use. Subjective/Events-last exam Pt reports not feeling well. States he is nauseated but would also like to eat. He complains of worsening pain in his leg. Mom reports his leg is much more swollen than yesterday. Objective Exam Vital Signs Vital Signs Date Time Temp Pulse Resp B/P (MAP) Pulse Ox O2 Delivery O2 Flow Rate FiO2 07/12/22 08:00 100 19 131/102 (112) 97 Room Air 07/12/22 07:58 37.0 07/08/22 18:30 2.00 07/08/22 00:43 21 Capillary Refill : Less Than 3 Seconds General Appearance: No Apparent Distress Respiratory: Lungs Clear, No Respiratory Distress Cardiovascular: Regular Rate, Rhythm, No Murmur Gastrointestinal: Normal Bowel Sounds, Soft Neurologic/Psychiatric: Alert, Oriented x3 Results/Procedures Lab Laboratory Tests 07/12/22 05:16 Patient resulted labs reviewed. Imaging: Reviewed Imaging Films, Reviewed Imaging Report Assessment/Plan Assessment and Plan Assess & Plan/Chief Complaint Sepsis Dog bite Necrotizing fasciitis of left leg Compartment syndrome Surgery following- I discussed with Dr Angeles this morning and he will see to evaluate for potential need for further surgery Continue antibiotics Wound vac removed yesterday for wet to dry dressings Pain regimen to continue Rabies vaccination series to continue SALVADOR ATN Resolved Substance abuse Monitor DVT prophylaxis: Lalinox Critical Care Critically Ill Patient (See free text) Clinical Quality Measures DVT/VTE Risk/Contraindication: Contraindications-Mechi: Other *list below* Other: leg cellulitis CHOLO MARTINEZ MD Jul 12, 2022 09:11
[2022-07-12] MEDS: LORazepam 0.5 MG (ATIVAN) TABLET PO PRN ×2 (09:35→16:22)
[2022-07-12] MEDS: fentaNYL INJ 100 MCG/2 ML AMP IVP PRN ×6 (09:35→18:00)
[2022-07-12] MEDS: PATCH REMOVAL TP SCH (09:46)
--- NOTE | 2022-07-12 11:08 | Wound Care Assessment ---
Wound Care Assessment Date Seen by Provider: Jul 12, 2022 Time Seen by Provider: 11:02 Chief Complaint Necrotizing fasciitis s/p debridement HPI Patient has exquisite pain in his left calf upon palpation or pressure. Had wound-vac placed over the weekend but was removed and replaced with gauze dressing. Today gauze dressing was removed and replaced with Veriflow wound-vac with Vashe. Addressed the wound with Dr. Angeles and he agreed with Veriflow placement. Patient was NPO this morning for possible surgery but was returned to normal diet. Protein shakes for PEM. WBC improved over weekend. Wound culture sensitive to Vancomycin (MRSA and GAS). Persistent edema and erythema. Not worse per patient. Acute kidney injury resolved with hydration and improvement in infection. No plans for surgery from Dr. Angeles at this time. Smoking Status: Current Everyday Smoker (1 ppd) Recreational Drug Use: Yes (methamphetamine (last on 07-06-22)) Review of Systems General: Chills, Fatigue Gastrointestinal: Nausea; No: Vomiting Musculoskeletal: leg pain, foot pain Exam Vital Signs Date Time Temp Pulse Resp B/P (MAP) Pulse Ox O2 Delivery O2 Flow Rate FiO2 07/12/22 09:11 100 Room Air 0.00 07/12/22 08:00 100 19 131/102 (112) 07/12/22 07:58 37.0 07/08/22 00:43 21 Capillary Refill : Less Than 3 Seconds General Appearance: moderate distress (Distress with wound-vac placement. No distress at rest.), thin HEENT: No pale conjunctivae (R), No pale conjunctivae (L) Cardiovascular: normal peripheral pulses, tachycardia (Likely 2/2 pain) Respiratory: no respiratory distress, no accessory muscle use Extremities: calf tenderness, inflammation, pedal edema, swelling Neurologic/Psychiatric: a r specialist II-XII nml as tested, alert, oriented x 3 Skin Character: erythema, swelling, tenderness Previous wound assessment: 17.3x18.1x1.2 cm. Exposed necrotic fascia and muscle. The epithelialization is none. There is no tunneling. Undermining 7-11 (max 3cm), 4-6 (max 2.2cm). Drainage is large and serosanguinous. Granulation is none. Margin is flat. Current wound assessment: 15 x 18 x 1.5 cm. Exposed necrotic fascia and muscle. Improved from initial assessment. The epithelialization is none. There is no tunneling. Undermining at the inferior margin, 5-7 is 1.5 cm. Undermining at the lateral margin, 8-10 is 1.5 cm. Drainage is large and serosanguineous. Granulation is small and pink. Margin is flat. Results Laboratory Tests 07/12/22 05:16: White Blood Count 12.2H, Red Blood Count 3.69L, Hemoglobin 11.1L, Hematocrit 33L , Mean Corpuscular Volume 89, Mean Corpuscular Hemoglobin 30, Mean Corpuscular Hemoglobin Concent 34, Red Cell Distribution Width 13.2, Platelet Count 284, Mean Platelet Volume 9.4, Immature Granulocyte % (Auto) 2, Neutrophils (%) (Auto) 62, Lymphocytes (%) (Auto) 18, Monocytes (%) (Auto) 15H, Eosinophils (%) (Auto) 3, Basophils (%) (Auto) 0, Neutrophils # (Auto) 7.6, Lymphocytes # (Auto) 2.2, Monocytes # (Auto) 1.8H, Eosinophils # (Auto) 0.3, Basophils # (Auto) 0.1, Immature Granulocyte # (Auto) 0.3H, Sodium Level 135, Potassium Level 3.6, Chloride Level 99, Carbon Dioxide Level 25, Anion Gap 11, Blood Urea Nitrogen 10, Creatinine 0.83, Estimat Glomerular Filtration Rate 116, BUN/Creatinine Ratio 12, Glucose Level 101, Calcium Level 8.6, Corrected Calcium 9.6, Phosphorus Level 2.7, Magnesium Level 1.6, Total Bilirubin 0.2, Aspartate Amino Transf (AST/SGOT) 17, Alanine Aminotransferase (ALT/SGPT) 18, Alkaline Phosphatase 52, Total Protein 6.0L, Albumin 2.7L Microbiology 07/08/22 Gram Stain - Final, Resulted 07/08/22 Anaerobic Culture, Resulted Pending 07/08/22 Surgical Culture - Final, Resulted Staphylococcus aureus Streptococcus pyogenes Grp A 07/07/22 MRSA Screen - Final, Complete MRSA not isolated 07/07/22 Urine Culture - Final, Complete NO GROWTH 07/07/22 Blood Culture - Preliminary, Resulted No growth Assessment/Plan/Dx Assessment: 1. Necrotizing fasciitis s/p debridement 2. Impending compartment syndrome (resolved) 3. Dog bite 4. Methamphetamine abuse 5. Tobaccoism 6. PEM 7. Acute kidney injury-resolved Plan: 1. Transition to Veriflow wound-vac with Vashe. Placed hydrocolloid around margins of wound with Cavilon to help with seal. Patient had pain with placement but ultimately tolerated well. 2. Per surgery 3. per primary team 4. Counseled patient on drug use and necessity for cessation for wound healing 5. Counseled on tobacco cessation 6. Protein shakes 7. Per primary team. Supervisory-Addendum Brief Verification & Attestation Participated in pt care: history, MDM, physical Personally performed: exam, history, MDM, supervision of care Care discussed with: Medical Student Procedures: n/a Results interpretation: Verified all documentation AMANDA Rangel MD Jul 12, 2022 11:08 DIANA LINARES MD Jul 12, 2022 12:42
[2022-07-12] MEDS ORDERED: RABIES VACCINE HUMAN DIPL CELL 1 ML/2.5 UNITS SYR INJ ONE (12:00)
--- NOTE | 2022-07-12 12:01 | Tele-ICU Progress Note ---
Subjective Date Seen by a Provider: Jul 12, 2022 Time Seen by a Provider: 12:00 Subjective/Events-last exam (Tele-ICU Physician , Progress Note ) Service provided via interactive audio and video telecommunications E-CARE system to a patient admitted to ICU bed in [facility]. Available chart/ vitals / labs / Images reviewed Video assessment done using teleICU camera, rest of exam as per RN Discussed with RN Events overnight : Afebrile hemodynamically stable Respiratory - ra I/O = pos Drips: Pressors- no Consultants:sx Hospital course: (07/07) 36yr M admitted for SALVADOR, Infected Dog Bite to left leg and right buttock. Patient was attacked by pitbull 2 days ago. + Methamphetamines. 07/08-s/p wide debridement and 4 compartment fasciotomy- wound vac A/P necrotizing fasciitis left lower leg -s/p wide debridement and 4 compartment fasciotomy- wound vac in place , wound RN follows -Received unasyn, vanco Pain control. Acute kidney injury - resolved Substance abuse ( + methamphet + amphetamines ) - monitor for withdrawal - received geodone / ativan prn - Dog Bite ( wounds to bilateral lower legs and to buttock.) (rabbies immune globulin and rabies vaccine given in ED Lines : PICC for blood draw and abx (Central Line Necessity Reviewed) [place]: void OG: Nutrition: po Analgesia: Anxiety/ delirium VTE Prophylaxis: alexander 40 Stress Ulcer Prophylaxis: na Plans in collaboration with bedside consultants and IM MDs. Discussed with RN to reach out if any questions or concerns A total of 20 minutes of critical care time was devoted to this patient today, required to treat and/or prevent further deterioration of critical care condition ( as above ) . I am remotely monitoring this patient from another state. I am unable to do the bedside exam, and history/physical and pertinent information is taken from other notes in the computer and bedside staff. . Sepsis Event Evaluation Height, Weight, BMI Height: '" Weight: lbs. oz. kg; 23.79 BMI Method: Exam Exam Patient acknowledged, consented, and participated in this virtual visit which was conducted using real time audio/video Vital Signs Date Time Temp Pulse Resp B/P (MAP) Pulse Ox O2 Delivery O2 Flow Rate FiO2 07/12/22 10:00 90 135/88 (104) 100 Room Air 07/12/22 09:11 100 Room Air 0.00 07/12/22 09:00 91 20 148/104 (119) 100 Room Air 07/12/22 08:00 100 19 131/102 (112) 97 Room Air 07/12/22 08:00 95 Room Air 07/12/22 07:58 37.0 07/12/22 07:32 90 07/12/22 07:00 109 26 142/108 (119) 99 Room Air 07/12/22 06:00 105 17 137/94 (108) 98 Room Air 07/12/22 05:00 96 15 133/95 (108) 100 Room Air 07/12/22 04:01 37.2 07/12/22 04:00 95 Room Air 07/12/22 04:00 76 12 150/108 (122) 100 Room Air 07/12/22 03:00 89 17 127/84 (98) 100 Room Air 07/12/22 02:00 96 15 133/94 (107) 100 Room Air 07/12/22 01:00 92 07/12/22 01:00 92 16 133/101 (112) 98 Room Air 07/12/22 00:01 37.4 07/12/22 00:01 95 Room Air 07/12/22 00:00 72 20 134/86 (102) 100 Room Air 07/11/22 23:00 92 17 126/88 (101) 98 Room Air 07/11/22 22:00 89 17 131/96 (108) 98 Room Air 07/11/22 21:00 98 17 130/91 (104) 98 Room Air 07/11/22 20:01 37.2 07/11/22 20:00 95 Room Air 07/11/22 20:00 96 16 138/93 (108) 100 Room Air 07/11/22 19:04 38.7 07/11/22 19:00 105 16 121/86 (98) 100 Room Air 07/11/22 19:00 105 07/11/22 18:00 98 18 139/98 (112) 99 Room Air 07/11/22 17:00 91 15 131/89 (103) 9 Room Air 07/11/22 16:00 86 15 137/89 (105) 99 Room Air 07/11/22 16:00 97 Room Air 07/11/22 15:00 63 16 146/108 (121) 99 Room Air 07/11/22 14:00 84 13 130/88 (102) 99 Room Air 07/11/22 13:00 89 12 122/97 (105) 100 Room Air 07/11/22 12:54 110 I & O 07/12/22 07:00 Intake Total 4000 ml Output Total 3850 ml Balance 150 ml Height & Weight Height: '" Weight: lbs. oz. kg; 23.79 BMI Method: General Appearance: No Apparent Distress HEENT: PERRL/EOMI Neck: Full Range of Motion, Non Tender Respiratory: Lungs Clear, No Respiratory Distress Cardiovascular: Regular Rate, Rhythm, No Murmur Capillary Refill: Less Than 3 Seconds Peripheral Pulses: 1+ Dorsalis Pedis (R), 1+ Left Dors-Pedis (L); 2+ Radial Pulses (R), 2+ Radial Pulses (L) Gastrointestinal: normal bowel sounds, non tender, soft Extremity: Other (left leg red, swollen, tender, wound vac in place) Neurologic/Psychiatric: Alert, Oriented x3 Skin: Warm/Dry, Erythema (LLE, appears slightly worse from yesterday ) Lymphatic: No Adenopathy Results Lab Laboratory Tests 07/11/22 04:21 07/12/22 05:16 Assessment/Plan Assessment/Plan 1 BABITA BRIGHT MD Jul 12, 2022 12:01
--- NOTE | 2022-07-12 17:48 | Progress Note ---
Subjective Date Seen by a Provider: Jul 12, 2022 Time Seen by a Provider: 17:00 Subjective/Events-last exam doing ok. very agitated and always complains of pain even with very light tough. reviewed entire series of pictures of wound with patient in prone position and wound appears intact. no new areas of erythema/edema with viable underlying muscle. has developed foot edema due to venous congestion and destruction of lymph channels. Objective Exam Vital Signs Date Time Temp Pulse Resp B/P (MAP) Pulse Ox O2 Delivery O2 Flow Rate FiO2 07/12/22 17:00 105 20 139/103 (115) Room Air 07/12/22 16:00 105 17 139/93 (108) Room Air 07/12/22 15:00 87 44 129/89 (102) Room Air 07/12/22 14:00 112 22 120/73 (89) 100 Room Air 07/12/22 13:00 93 22 112/69 (83) 100 Room Air 07/12/22 12:18 101 07/12/22 12:00 95 Room Air 07/12/22 12:00 101 34 129/102 (111) 100 Room Air 07/12/22 10:00 90 135/88 (104) 100 Room Air 07/12/22 09:11 100 Room Air 0.00 07/12/22 09:00 91 20 148/104 (119) 100 Room Air 07/12/22 08:00 100 19 131/102 (112) 97 Room Air 07/12/22 08:00 95 Room Air 07/12/22 07:58 37.0 07/12/22 07:32 90 07/12/22 07:00 109 26 142/108 (119) 99 Room Air 07/12/22 06:00 105 17 137/94 (108) 98 Room Air 07/12/22 05:00 96 15 133/95 (108) 100 Room Air 07/12/22 04:01 37.2 07/12/22 04:00 95 Room Air 07/12/22 04:00 76 12 150/108 (122) 100 Room Air 07/12/22 03:00 89 17 127/84 (98) 100 Room Air 07/12/22 02:00 96 15 133/94 (107) 100 Room Air 07/12/22 01:00 92 07/12/22 01:00 92 16 133/101 (112) 98 Room Air 07/12/22 00:01 37.4 07/12/22 00:01 95 Room Air 07/12/22 00:00 72 20 134/86 (102) 100 Room Air 07/11/22 23:00 92 17 126/88 (101) 98 Room Air 07/11/22 22:00 89 17 131/96 (108) 98 Room Air 07/11/22 21:00 98 17 130/91 (104) 98 Room Air 07/11/22 20:01 37.2 07/11/22 20:00 95 Room Air 07/11/22 20:00 96 16 138/93 (108) 100 Room Air 07/11/22 19:04 38.7 07/11/22 19:00 105 16 121/86 (98) 100 Room Air 07/11/22 19:00 105 07/11/22 18:00 98 18 139/98 (112) 99 Room Air I & O 07/12/22 07:00 Intake Total 4000 ml Output Total 3850 ml Balance 150 ml Capillary Refill : Less Than 3 Seconds General Appearance: No Apparent Distress HEENT: PERRL/EOMI Neck: Full Range of Motion Respiratory: Decreased Breath Sounds, Wheezing Cardiovascular: Regular Rate, Rhythm Gastrointestinal: normal bowel sounds, non tender, soft Extremity: Other (wound intact with no new areas redness/e rythema/edema/necrosis) Neurologic/Psychiatric: Alert, Oriented x3 Skin: Normal Color Lymphatic: No Adenopathy Results Lab Laboratory Tests 07/12/22 05:16: White Blood Count 12.2H, Red Blood Count 3.69L, Hemoglobin 11.1L, Hematocrit 33L , Mean Corpuscular Volume 89, Mean Corpuscular Hemoglobin 30, Mean Corpuscular Hemoglobin Concent 34, Red Cell Distribution Width 13.2, Platelet Count 284, Mean Platelet Volume 9.4, Immature Granulocyte % (Auto) 2, Neutrophils (%) (Auto) 62, Lymphocytes (%) (Auto) 18, Monocytes (%) (Auto) 15H, Eosinophils (%) (Auto) 3, Basophils (%) (Auto) 0, Neutrophils # (Auto) 7.6, Lymphocytes # (Auto) 2.2, Monocytes # (Auto) 1.8H, Eosinophils # (Auto) 0.3, Basophils # (Auto) 0.1, Immature Granulocyte # (Auto) 0.3H, Sodium Level 135, Potassium Level 3.6, Chloride Level 99, Carbon Dioxide Level 25, Anion Gap 11, Blood Urea Nitrogen 10, Creatinine 0.83, Estimat Glomerular Filtration Rate 116, BUN/Creatinine Ratio 12, Glucose Level 101, Calcium Level 8.6, Corrected Calcium 9.6, Phosphorus Level 2.7, Magnesium Level 1.6, Total Bilirubin 0.2, Aspartate Amino Transf (AST/SGOT) 17, Alanine Aminotransferase (ALT/SGPT) 18, Alkaline Phosphatase 52, Total Protein 6.0L, Albumin 2.7L Microbiology 07/08/22 Gram Stain - Final, Complete 07/08/22 Anaerobic Culture - Final, Complete No anaerobes isolated 07/08/22 Surgical Culture - Final, Complete Staphylococcus aureus Streptococcus pyogenes Grp A 07/07/22 MRSA Screen - Final, Complete MRSA not isolated 07/07/22 Urine Culture - Final, Complete NO GROWTH 07/07/22 Blood Culture - Preliminary, Resulted No growth Assessment/Plan Assessment/Plan Assess & Plan/Chief Complaint necrotizing fasciitis left lower leg s/p wide debridement and 4 compartment fasciotomy. switched to veriflo wound vac today. ok to ambulate. elevate with 2 pillows while in bed had developed foot edema so 4" lamont placed from toes to area of vac. cont iv abx. increase ativan for agitation/drug withdrawal. Clinical Quality Measures DVT/VTE Risk/Contraindication: Contraindications-Mechi: Other *list below* Other: leg cellulitis JARON CASTELLANOS MD Jul 12, 2022 17:48
[2022-07-12] MEDS: LORazepam INJ 2 MG/ML (ATIVAN) VIAL IVP PRN (18:00)
[2022-07-12] MEDS: morphine INJ 4 MG/ML 1 ML (VIAL/SYRINGE) IV PRN (20:58)
[2022-07-12] MEDS: IBUPROFEN 800 MG (MOTRIN) TAB PO SCH (21:00)
[2022-07-12] MEDS ORDERED: VANCOMYCIN 1000 MG/VIAL ONE (21:21)
[2022-07-12] MEDS ORDERED: NS (IVPB) 250 ML ONE (21:21)
[2022-07-12] MEDS: VANCOMYCIN 1500 MG/NS 500 ML IVPB IV SCH ×2 (21:29)
[2022-07-13 04:49] LABS: BASOPHILS # (AUTO) 0.1 10^3/uL (0.0-0.1); BASOPHILS % (AUTO) 1 % (0-10); EOSINOPHILS # (AUTO) 0.4 10^3/uL (0.0-0.3); EOSINOPHILS % (AUTO) 3 % (0-10); HEMATOCRIT 34 % (40-54); HEMOGLOBIN 11.4 g/dL (13.3-17.7); LYMPHOCYTES # (AUTO) 2.6 10^3/uL (1.0-4.0); LYMPHOCYTES % (AUTO) 23 % (12-44); MEAN CORPUSCULAR HEMOGLOBIN 30 pg (25-34); MEAN CORPUSCULAR HGB CONC 34 g/dL (32-36); MEAN CORPUSCULAR VOLUME 90 fL (80-99); MEAN PLATELET VOLUME 9.2 fL (9.0-12.2); MONOCYTES # (AUTO) 1.2 10^3/uL (0.0-1.0); MONOCYTES % (AUTO) 11 % (0-12); NEUTROPHILS # (AUTO) 6.7 10^3/uL (1.8-7.8); NEUTROPHILS % (AUTO) 59 % (42-75); PLATELET COUNT 369 10^3/uL (130-400); WHITE BLOOD COUNT 11.4 10^3/uL (4.3-11.0)
[2022-07-13 05:08] LABS: ALBUMIN 2.9 GM/DL (3.2-4.5); BILIRUBIN,TOTAL 0.2 MG/DL (0.1-1.0); CALCIUM 9.1 MG/DL (8.5-10.1); CREATININE SERUM 0.8 MG/DL (0.60-1.30); MAGNESIUM 1.7 MG/DL (1.6-2.4); PHOSPHORUS 3.9 MG/DL (2.3-4.7); POTASSIUM 4.4 MMOL/L (3.6-5.0); TOTAL PROTEIN 6.4 GM/DL (6.4-8.2)
[2022-07-13] MEDS: KCL 20 MEQ TAB (K-DUR) PO SCH (05:12)
[2022-07-13] MEDS: POTASSIUM CL 10MEQ/50ML IVPB 50 ML IV SCH (05:12)
[2022-07-13 05:17] LABS: VANCOMYCIN,TROUGH 13.5 UG/ML (10.0-20.0)
[2022-07-13] MEDS: MAGNESIUM 1 GM/100 ML IVPB 100 ML IV SCH ×2 (05:38→05:48)
[2022-07-13] MEDS: IBUPROFEN 800 MG (MOTRIN) TAB PO SCH ×3 (05:38→22:24)
[2022-07-13] MEDS ORDERED: TROUGH ORDER-PHARMACY XX ONE (07:00)
[2022-07-13] MEDS: NICOTINE 21 MG (NICODERM) PATCH TD SCH ×2 (08:02→08:14)
[2022-07-13] MEDS: morphine IMMEDIATE RELEASE 15 MG TABLET PO PRN ×2 (08:02→15:04)
[2022-07-13] MEDS: ENOXAPARIN 40 MG/0.4 ML (LOVENOX) SYR SC SCH (08:03)
[2022-07-13] MEDS: VANCOMYCIN 1500 MG/NS 500 ML IVPB IV SCH ×4 (08:09→19:42)
[2022-07-13] MEDS: DOCUSATE SODIUM 100 MG (COLACE) CAP PO SCH ×2 (08:13→19:53)
[2022-07-13] MEDS: SENNOSIDES 8.6 MG (SENOKOT) TAB PO SCH ×2 (08:14→19:53)
[2022-07-13] MEDS: PATCH REMOVAL TP SCH (08:14)
--- NOTE | 2022-07-13 08:28 | Tele-ICU Progress Note ---
Subjective Date Seen by a Provider: Jul 13, 2022 Time Seen by a Provider: 08:28 Sepsis Event Evaluation Height, Weight, BMI Height: '" Weight: lbs. oz. kg; 22.83 BMI Method: Exam Exam Patient acknowledged, consented, and participated in this virtual visit which was conducted using real time audio/video Vital Signs Date Time Temp Pulse Resp B/P (MAP) Pulse Ox O2 Delivery O2 Flow Rate FiO2 07/13/22 08:00 75 25 119/76 (90) 100 Room Air 07/13/22 07:50 36.7 07/13/22 07:00 63 12 99 Room Air 07/13/22 07:00 82 07/13/22 06:00 79 10 150/98 (115) 100 Room Air 07/13/22 05:00 69 23 134/97 (111) 99 Room Air 07/13/22 04:43 37.2 07/13/22 04:37 107 17 132/95 (113) 97 Room Air 07/13/22 04:00 98 Room Air 07/13/22 03:00 81 10 132/97 (104) 98 Room Air 07/13/22 02:00 92 29 129/96 (107) 98 Room Air 07/13/22 01:00 84 38 132/92 (101) 97 Room Air 07/13/22 01:00 83 07/13/22 01:00 84 07/13/22 00:00 89 29 125/91 (97) 98 Room Air 07/12/22 23:50 98 Room Air 07/12/22 23:44 36.4 07/12/22 23:00 92 15 132/90 (101) 97 Room Air 07/12/22 22:00 92 15 117/86 (97) 96 Room Air 07/12/22 21:00 109 23 127/83 (97) 96 Room Air 07/12/22 20:38 37.7 07/12/22 20:26 101 18 129/84 (98) 97 Room Air 07/12/22 20:00 98 Room Air 07/12/22 19:00 111 15 135/94 (104) 99 Room Air 07/12/22 19:00 111 07/12/22 18:00 101 24 113/70 (84) 98 Room Air 07/12/22 17:00 105 20 139/103 (115) Room Air 07/12/22 16:00 95 Room Air 07/12/22 16:00 105 17 139/93 (108) Room Air 07/12/22 15:00 87 44 129/89 (102) Room Air 07/12/22 14:00 112 22 120/73 (89) 100 Room Air 07/12/22 13:00 93 22 112/69 (83) 100 Room Air 07/12/22 12:18 101 07/12/22 12:00 95 Room Air 07/12/22 12:00 101 34 129/102 (111) 100 Room Air 07/12/22 10:00 90 135/88 (104) 100 Room Air 07/12/22 09:11 100 Room Air 0.00 07/12/22 09:00 91 20 148/104 (119) 100 Room Air I & O 07/13/22 07:00 Intake Total 2257 ml Output Total 3050 ml Balance -793 ml Height & Weight Height: '" Weight: lbs. oz. kg; 22.83 BMI Method: General Appearance: No Apparent Distress HEENT: PERRL/EOMI Neck: Full Range of Motion Respiratory: Decreased Breath Sounds, Wheezing Cardiovascular: Regular Rate, Rhythm Capillary Refill: Less Than 3 Seconds Peripheral Pulses: 1+ Dorsalis Pedis (R), 1+ Left Dors-Pedis (L); 2+ Radial Pulses (R), 2+ Radial Pulses (L) Gastrointestinal: normal bowel sounds, non tender, soft Extremity: Other (wound intact with no new areas redness/erythema/edema/necrosis) Neurologic/Psychiatric: Alert, Oriented x3 Skin: Normal Color Lymphatic: No Adenopathy Results Lab Laboratory Tests 07/12/22 05:16 07/13/22 04:38 NIDA FELICIANO MD Jul 13, 2022 08:28
--- NOTE | 2022-07-13 08:45 | Progress Note - Hospitalist ---
Subjective HPI/CC On Admission Date Seen by Provider: Jul 12, 2022 Danis Moura is a 36y/o M who is being seen for dog bites. Pt reports that 3 days ago he was bit by a dog on both lower legs and his right buttocks. He did not know who's dog it was. The dog ran away afterwards and pt did not make a police report or call animal control. He did not seek medical attention after the incident. In the following days the legs began to swell and become red. Presented to the ER last night due to the increasing swelling, erythema, and pain. Also was having fever and chills. Given rabies immunoglobin and rabies vaccine. Also started on antibiotics. Today her reports that the pain in his legs is a "12/10". The pain does improve w/ pain medication. Erythema has not spread and he says that the swelling has improved since admission. Denies currently having any fevers, chills, vision changes, headaches, muscle weakness, numbness, or tingling in extremities. He does have a hx of meth use. Objective Exam Vital Signs Vital Signs Date Time Temp Pulse Resp B/P (MAP) Pulse Ox O2 Delivery O2 Flow Rate FiO2 07/13/22 08:00 100 Room Air 07/13/22 08:00 75 25 119/76 (90) 07/13/22 07:50 36.7 07/12/22 09:11 0.00 07/08/22 00:43 21 Capillary Refill : Less Than 3 Seconds General Appearance: No Apparent Distress, Thin Respiratory: Lungs Clear, No Respiratory Distress Cardiovascular: Regular Rate, Rhythm, No JVD, No Murmur Extremity: Swelling (left foot, wound dressed with gauze) Neurologic/Psychiatric: Alert, Oriented x3 Skin: Tattoos/Piercings Results/Procedures Lab Laboratory Tests 07/13/22 04:38 Patient resulted labs reviewed. Assessment/Plan Assessment and Plan Assess & Plan/Chief Complaint Sepsis Dog bite Necrotizing fasciitis of left leg Compartment syndrome Surgery following- I discussed with Dr Angeles this morning and he will see to evaluate for potential need for further surgery Continue antibiotics Wound vac removed yesterday for wet to dry dressings Pain regimen to continue Rabies vaccination series to continue [place] ATN Resolved Substance abuse Monitor DVT prophylaxis: Lovenox Critical Care Critically Ill Patient (See free text) Clinical Quality Measures DVT/VTE Risk/Contraindication: Contraindications-Mechi: Other *list below* Other: leg cellulitis CHOLO MARTINEZ MD Jul 13, 2022 8:45 am
--- NOTE | 2022-07-13 09:59 | Progress Note - Hospitalist ---
Subjective HPI/CC On Admission Date Seen by Provider: Jul 13, 2022 Danis Moura is a 36y/o M who is being seen for dog bites. Pt reports that 3 days ago he was bit by a dog on both lower legs and his right buttocks. He did not know who's dog it was. The dog ran away afterwards and pt did not make a police report or call animal control. He did not seek medical attention after the incident. In the following days the legs began to swell and become red. Presented to the ER last night due to the increasing swelling, erythema, and pain. Also was having fever and chills. Given rabies immunoglobin and rabies vaccine. Also started on antibiotics. Today her reports that the pain in his legs is a "12/10". The pain does improve w/ pain medication. Erythema has not spread and he says that the swelling has improved since admission. Denies currently having any fevers, chills, vision changes, headaches, muscle weakness, numbness, or tingling in extremities. He does have a hx of meth use. Subjective/Events-last exam Pt reports feeling ok. States pain improving. No new complaints. Wound vac back in place. Objective Exam Vital Signs Vital Signs Date Time Temp Pulse Resp B/P (MAP) Pulse Ox O2 Delivery O2 Flow Rate FiO2 07/13/22 08:00 100 Room Air 07/13/22 08:00 75 25 119/76 (90) 07/13/22 07:50 36.7 07/12/22 09:11 0.00 07/08/22 00:43 21 Capillary Refill : Less Than 3 Seconds General Appearance: No Apparent Distress, WD/WN Respiratory: Lungs Clear, No Respiratory Distress Cardiovascular: Regular Rate, Rhythm, No Murmur Neurologic/Psychiatric: Alert, Oriented x3 Skin: Tattoos/Piercings Results/Procedures Lab Laboratory Tests 07/13/22 04:38 Patient resulted labs reviewed. Imaging: Reviewed Imaging Films, Reviewed Imaging Report Assessment/Plan Assessment and Plan Assess & Plan/Chief Complaint Sepsis Dog bite Necrotizing fasciitis of left leg Compartment syndrome Surgery following Wound care replaced wound vac yesterday Continue antibiotics Pain regimen to continue Rabies vaccination series to continue [place] ATN Resolved Substance abuse Monitor DVT prophylaxis: Lovenox Critical Care Critically Ill Patient (See free text) Clinical Quality Measures DVT/VTE Risk/Contraindication: Contraindications-Mechi: Other *list below* Other: leg cellulitis CHOLO MARTINEZ MD Jul 13, 2022 9:59 am
--- NOTE | 2022-07-13 14:02 | Progress Note ---
Subjective Date Seen by a Provider: Jul 13, 2022 Time Seen by a Provider: 14:00 Subjective/Events-last exam wounc vac in place as well as lamont to foot. always complains of pain however appears comfortable. no fever/chills. Objective Exam Vital Signs Date Time Temp Pulse Resp B/P (MAP) Pulse Ox O2 Delivery O2 Flow Rate FiO2 07/13/22 13:00 101 07/13/22 12:00 37.8 07/13/22 08:00 100 Room Air 07/13/22 08:00 75 25 119/76 (90) 100 Room Air 07/13/22 07:50 36.7 07/13/22 07:00 63 12 99 Room Air 07/13/22 07:00 82 07/13/22 06:00 79 10 150/98 (115) 100 Room Air 07/13/22 05:00 69 23 134/97 (111) 99 Room Air 07/13/22 04:43 37.2 07/13/22 04:37 107 17 132/95 (113) 97 Room Air 07/13/22 04:00 98 Room Air 07/13/22 03:00 81 10 132/97 (104) 98 Room Air 07/13/22 02:00 92 29 129/96 (107) 98 Room Air 07/13/22 01:00 84 38 132/92 (101) 97 Room Air 07/13/22 01:00 83 07/13/22 01:00 84 07/13/22 00:00 89 29 125/91 (97) 98 Room Air 07/12/22 23:50 98 Room Air 07/12/22 23:44 36.4 07/12/22 23:00 92 15 132/90 (101) 97 Room Air 07/12/22 22:00 92 15 117/86 (97) 96 Room Air 07/12/22 21:00 109 23 127/83 (97) 96 Room Air 07/12/22 20:38 37.7 07/12/22 20:26 101 18 129/84 (98) 97 Room Air 07/12/22 20:00 98 Room Air 07/12/22 19:00 111 15 135/94 (104) 99 Room Air 07/12/22 19:00 111 07/12/22 18:00 101 24 113/70 (84) 98 Room Air 07/12/22 17:00 105 20 139/103 (115) Room Air 07/12/22 16:00 95 Room Air 07/12/22 16:00 105 17 139/93 (108) Room Air 07/12/22 15:00 87 44 129/89 (102) Room Air 07/12/22 14:00 112 22 120/73 (89) 100 Room Air I & O 07/13/22 06:59 Intake Total 2257 ml Output Total 3050 ml Balance -793 ml Capillary Refill : Less Than 3 Seconds General Appearance: No Apparent Distress HEENT: PERRL/EOMI Neck: Full Range of Motion Respiratory: Chest Non Tender, Lungs Clear Cardiovascular: Regular Rate, Rhythm Gastrointestinal: normal bowel sounds, non tender, soft Extremity: Other (wound vac in place, no new areas redness/erythema) Neurologic/Psychiatric: Alert, Oriented x3 Skin: Normal Color Lymphatic: No Adenopathy Results Lab Laboratory Tests 07/13/22 04:38: White Blood Count 11.4H, Red Blood Count 3.75L, Hemoglobin 11.4L, Hematocrit 34L , Mean Corpuscular Volume 90, Mean Corpuscular Hemoglobin 30, Mean Corpuscular Hemoglobin Concent 34, Red Cell Distribution Width 13.2, Platelet Count 369, Mean Platelet Volume 9.2, Immature Granulocyte % (Auto) 4, Neutrophils (%) (Auto) 59, Lymphocytes (%) (Auto) 23, Monocytes (%) (Auto) 11, Eosinophils (%) (Auto) 3, Basophils (%) (Auto) 1, Neutrophils # (Auto) 6.7, Lymphocytes # (Auto) 2.6, Monocytes # (Auto) 1.2H, Eosinophils # (Auto) 0.4H, Basophils # (Auto) 0.1, Immature Granulocyte # (Auto) 0.4H, Sodium Level 138, Potassium Level 4.4, Chloride Level 103, Carbon Dioxide Level 24, Anion Gap 11, Blood Urea Nitrogen 18, Creatinine 0.80, Estimat Glomerular Filtration Rate 118, BUN/Creatinine Ratio 23, Glucose Level 94, Calcium Level 9.1, Corrected Calcium 10.0, Phosphor us Level 3.9, Magnesium Level 1.7, Total Bilirubin 0.2, Aspartate Amino Transf (AST/SGOT) 26, Alanine Aminotransferase (ALT/SGPT) 27, Alkaline Phosphatase 54, Total Protein 6.4, Albumin 2.9L, Vancomycin Level Trough 13.5 Microbiology 07/08/22 Gram Stain - Final, Complete 07/08/22 Anaerobic Culture - Final, Complete No anaerobes isolated 07/08/22 Surgical Culture - Final, Complete Staphylococcus aureus Streptococcus pyogenes Grp A 07/07/22 MRSA Screen - Final, Complete MRSA not isolated 07/07/22 Urine Culture - Final, Complete NO GROWTH 07/07/22 Blood Culture - Final, Complete No growth Assessment/Plan Assessment/Plan Assess & Plan/Chief Complaint necrotizing fasciitis left lower leg s/p wide debridement and 4 compartment fasciotomy. switched to veriflo wound vac today. ok to ambulate. elevate with 2 pillows while in bed had developed foot edema so 4" lamont placed from toes to area of vac. cont iv abx. now switched to zyvox. increase ativan for agitation/drug withdrawal. Clinical Quality Measures DVT/VTE Risk/Contraindication: Contraindications-Mechi: Other *list below* Other: leg cellulitis JARON CASTELLANOS MD Jul 13, 2022 14:02
[2022-07-14] MEDS: IBUPROFEN 800 MG (MOTRIN) TAB PO SCH ×3 (04:55→22:06)
[2022-07-14 05:26] LABS: BASOPHILS # (AUTO) 0.1 10^3/uL (0.0-0.1); BASOPHILS % (AUTO) 1 % (0-10); EOSINOPHILS # (AUTO) 0.5 10^3/uL (0.0-0.3); EOSINOPHILS % (AUTO) 4 % (0-10); HEMATOCRIT 34 % (40-54); HEMOGLOBIN 11.2 g/dL (13.3-17.7); LYMPHOCYTES # (AUTO) 2.2 10^3/uL (1.0-4.0); LYMPHOCYTES % (AUTO) 18 % (12-44); MEAN CORPUSCULAR HEMOGLOBIN 30 pg (25-34); MEAN CORPUSCULAR HGB CONC 33 g/dL (32-36); MEAN CORPUSCULAR VOLUME 92 fL (80-99); MONOCYTES # (AUTO) 0.8 10^3/uL (0.0-1.0); MONOCYTES % (AUTO) 7 % (0-12); NEUTROPHILS # (AUTO) 8.2 10^3/uL (1.8-7.8); NEUTROPHILS % (AUTO) 69 % (42-75); PLATELET COUNT 429 10^3/uL (130-400); WHITE BLOOD COUNT 11.9 10^3/uL (4.3-11.0)
[2022-07-14 05:54] LABS: BILIRUBIN,TOTAL 0.2 MG/DL (0.1-1.0); CALCIUM 9.1 MG/DL (8.5-10.1); CREATININE SERUM 0.79 MG/DL (0.60-1.30); MAGNESIUM 1.8 MG/DL (1.6-2.4); PHOSPHORUS 3.4 MG/DL (2.3-4.7); POTASSIUM 4.7 MMOL/L (3.6-5.0); TOTAL PROTEIN 6.6 GM/DL (6.4-8.2)
[2022-07-14] MEDS: POTASSIUM CL 10MEQ/50ML IVPB 50 ML IV SCH (06:03)
[2022-07-14] MEDS: KCL 20 MEQ TAB (K-DUR) PO SCH (06:03)
[2022-07-14] MEDS: MAGNESIUM 1 GM/100 ML IVPB 100 ML IV SCH (06:03)
[2022-07-14 08:00] VITALS: BP 123/81
[2022-07-14] MEDS: SENNOSIDES 8.6 MG (SENOKOT) TAB PO SCH ×2 (08:13→20:11)
[2022-07-14] MEDS: DOCUSATE SODIUM 100 MG (COLACE) CAP PO SCH ×2 (08:13→20:11)
[2022-07-14] MEDS: ENOXAPARIN 40 MG/0.4 ML (LOVENOX) SYR SC SCH (08:14)
[2022-07-14] MEDS: PATCH REMOVAL TP SCH (08:19)
[2022-07-14] MEDS: NICOTINE 21 MG (NICODERM) PATCH TD SCH (08:19)
[2022-07-14] MEDS: VANCOMYCIN 1500 MG/NS 500 ML IVPB IV SCH ×4 (08:59→20:11)
[2022-07-14] MEDS: fentaNYL INJ 100 MCG/2 ML AMP IVP PRN ×4 (09:59→23:08)
[2022-07-14] MEDS: LORazepam INJ 2 MG/ML (ATIVAN) VIAL IVP PRN (09:59)
[2022-07-14] MEDS: morphine INJ 4 MG/ML 1 ML (VIAL/SYRINGE) IV PRN (11:05)
[2022-07-14 11:47] VITALS: BP 129/82
[2022-07-14 16:00] VITALS: BP 113/66
--- NOTE | 2022-07-14 17:33 | Progress Note ---
Subjective Date Seen by a Provider: Jul 14, 2022 Time Seen by a Provider: 14:00 Subjective/Events-last exam doing well. veriflo wound vac changed and pictures viewed. now starting to form granulation bed. no new areas redness/erythema. Objective Exam Vital Signs Date Time Temp Pulse Resp B/P (MAP) Pulse Ox O2 Delivery O2 Flow Rate FiO2 07/14/22 16:00 36.7 81 16 113/66 (82) 98 Room Air 07/14/22 13:27 95 07/14/22 12:45 37.3 07/14/22 11:47 37.3 107 22 129/82 (98) 100 07/14/22 08:55 97 Room Air 07/14/22 08:00 98 Room Air 07/14/22 08:00 36.9 69 16 123/81 (95) 99 07/14/22 07:44 36.9 69 16 123/81 (95) 99 07/14/22 07:18 94 07/14/22 04:54 37.1 62 20 143/88 (106) 98 Room Air 07/14/22 01:00 77 07/13/22 23:00 37.0 75 20 126/78 (94) 98 Room Air 07/13/22 19:50 Room Air 07/13/22 19:33 37.3 98 20 110/68 (82) 100 Room Air 07/13/22 19:00 81 07/13/22 17:30 36.7 84 128/82 (97) Room Air I & O 07/14/22 07:00 Intake Total 2817 ml Output Total 2825 ml Balance -8 ml Capillary Refill : Less Than 3 Seconds General Appearance: No Apparent Distress HEENT: PERRL/EOMI Neck: Full Range of Motion Respiratory: Chest Non Tender, Wheezing Cardiovascular: Regular Rate, Rhythm Gastrointestinal: normal bowel sounds, non tender, soft Extremity: Other (vac in place, no new areas redness/erythema) Neurologic/Psychiatric: Alert, Oriented x3 Skin: Normal Color Lymphatic: No Adenopathy Results Lab Laboratory Tests 07/14/22 05:00: White Blood Count 11.9H, Red Blood Count 3.71L, Hemoglobin 11.2L, Hematocrit 34L , Mean Corpuscular Volume 92, Mean Corpuscular Hemoglobin 30, Mean Corpuscular Hemoglobin Concent 33, Red Cell Distribution Width 13.2, Platelet Count 429H, Mean Platelet Volume 9.0, Immature Granulocyte % (Auto) 2, Neutrophils (%) (Auto) 69, Lymphocytes (%) (Auto) 18, Monocytes (%) (Auto) 7, Eosinophils (%) (Auto) 4, Basophils (%) (Auto) 1, Neutrophils # (Auto) 8.2H, Lymphocytes # (Auto) 2.2, Monocytes # (Auto) 0.8, Eosinophils # (Auto) 0.5H, Basophils # (Auto) 0.1, Immature Granulocyte # (Auto) 0.2H, Sodium Level 137, Potassium Level 4.7, Chloride Level 103, Carbon Dioxide Level 23, Anion Gap 11, Blood Urea Nitrogen 22H, Creatinine 0.79, Estimat Glomerular Filtration Rate 118, BUN/Creatinine Ratio 28, Glucose Level 96, Calcium Level 9.1, Corrected Calcium 9.9, Phosphorus Level 3.4, Magnesium Level 1.8, Total Bilirubin 0.2, Aspartate Amino Transf (AST/SGOT) 34, Alanine Aminotransferase (ALT/SGPT) 37, Alkaline Phosphatase 57, Total Protein 6.6, Albumin 3.0L Microbiology 07/08/22 Gram Stain - Final, Complete 07/08/22 Anaerobic Culture - Final, Complete No anaerobes isolated 07/08/22 Surgical Culture - Final, Complete Staphylococcus aureus Streptococcus pyogenes Grp A 07/07/22 MRSA Screen - Final, Complete MRSA not isolated 07/07/22 Urine Culture - Final, Complete NO GROWTH 07/07/22 Blood Culture - Final, Complete No growth Assessment/Plan Assessment/Plan Assess & Plan/Chief Complaint necrotizing fasciitis left lower leg s/p wide debridement and 4 compartment fasciotomy. switched to veriflo wound vac today. ok to ambulate. elevate with 2 pillows while in bed had developed foot edema so 4" lamont placed from toes to area of vac. cont iv abx. now switched to zyvox. increase ativan for agitation/drug withdrawal. wound healing well based on todays vac change. may transfer to [facility] at any time. Clinical Quality Measures DVT/VTE Risk/Contraindication: Contraindications-Mechi: Other *list below* Other: leg cellulitis JARON CASTELLANOS MD Jul 14, 2022 17:33
[2022-07-14 20:16] VITALS: BP 135/77
[2022-07-14 23:04] VITALS: BP 125/73
[2022-07-15 03:50] VITALS: BP 132/82
[2022-07-15] MEDS: fentaNYL INJ 100 MCG/2 ML AMP IVP PRN ×4 (04:52→12:30)
[2022-07-15] MEDS: IBUPROFEN 800 MG (MOTRIN) TAB PO SCH (04:58)
[2022-07-15 05:04] LABS: BASOPHILS # (AUTO) 0.1 10^3/uL (0.0-0.1); BASOPHILS % (AUTO) 1 % (0-10); EOSINOPHILS # (AUTO) 0.4 10^3/uL (0.0-0.3); EOSINOPHILS % (AUTO) 4 % (0-10); HEMATOCRIT 33 % (40-54); HEMOGLOBIN 10.9 g/dL (13.3-17.7); LYMPHOCYTES # (AUTO) 2.4 10^3/uL (1.0-4.0); LYMPHOCYTES % (AUTO) 20 % (12-44); MEAN CORPUSCULAR HEMOGLOBIN 30 pg (25-34); MEAN CORPUSCULAR HGB CONC 33 g/dL (32-36); MEAN CORPUSCULAR VOLUME 91 fL (80-99); MEAN PLATELET VOLUME 8.6 fL (9.0-12.2); MONOCYTES # (AUTO) 0.6 10^3/uL (0.0-1.0); MONOCYTES % (AUTO) 5 % (0-12); NEUTROPHILS # (AUTO) 8.3 10^3/uL (1.8-7.8); NEUTROPHILS % (AUTO) 70 % (42-75); PLATELET COUNT 522 10^3/uL (130-400)
[2022-07-15 05:30] LABS: POTASSIUM 4.5 MMOL/L (3.6-5.0)
[2022-07-15 05:31] LABS: CALCIUM 9.3 MG/DL (8.5-10.1)
[2022-07-15 05:32] LABS: TOTAL PROTEIN 6.8 GM/DL (6.4-8.2)
[2022-07-15 05:34] LABS: BILIRUBIN,TOTAL 0.2 MG/DL (0.1-1.0)
[2022-07-15 05:36] LABS: CREATININE SERUM 0.84 MG/DL (0.60-1.30); PHOSPHORUS 3.7 MG/DL (2.3-4.7)
[2022-07-15 05:39] LABS: MAGNESIUM 1.6 MG/DL (1.6-2.4)
[2022-07-15] MEDS: KCL 20 MEQ TAB (K-DUR) PO SCH (05:54)
[2022-07-15] MEDS: POTASSIUM CL 10MEQ/50ML IVPB 50 ML IV SCH (05:54)
[2022-07-15] MEDS: MAGNESIUM 1 GM/100 ML IVPB 100 ML IV SCH ×2 (06:01→06:46)
[2022-07-15 07:47] VITALS: BP 123/70
[2022-07-15] MEDS: VANCOMYCIN 1500 MG/NS 500 ML IVPB IV SCH ×2 (09:01)
[2022-07-15] MEDS: DOCUSATE SODIUM 100 MG (COLACE) CAP PO SCH (09:03)
[2022-07-15] MEDS: SENNOSIDES 8.6 MG (SENOKOT) TAB PO SCH (09:03)
[2022-07-15] MEDS: NICOTINE 21 MG (NICODERM) PATCH TD SCH ×2 (09:04→09:13)
[2022-07-15] MEDS: PATCH REMOVAL TP SCH (09:04)
[2022-07-15] MEDS: ENOXAPARIN 40 MG/0.4 ML (LOVENOX) SYR SC SCH (09:25)
--- NOTE | 2022-07-15 10:05 | Discharge Summary ---
Diagnosis/Chief Complaint Date of Admission Jul 07, 2022 at 22:15 Date of Discharge Discharge Date: Jul 15, 2022 Admission Diagnosis Sepsis due to necrotizing fasciitis Primary Care No,Local Physician Discharge Diagnosis (1) Sepsis Status: Acute (2) Necrotizing fasciitis of lower leg Status: Acute (3) Compartment syndrome of left lower extremity Status: Acute (4) Dog bite of calf Status: Acute (5) SALVADOR (acute kidney injury) Status: Acute (6) ATN (acute tubular necrosis) Status: Acute (7) Methamphetamine abuse Status: Acute Discharge Summary Discharge Physical Exam Allergies: Coded Allergies: No Known Drug Allergies (Unverified , 07/07/22) Vitals & I&Os Vital Signs Date Time Temp Pulse Resp B/P (MAP) Pulse Ox O2 Delivery O2 Flow Rate FiO2 07/15/22 08:00 Room Air 07/15/22 07:47 36.7 80 19 123/70 (87) 99 07/12/22 09:11 0.00 General Appearance: No Apparent Distress, Chronically ill, Thin Cardiovascular: Regular Rate, Rhythm, No Murmur Gastrointestinal: Normal Bowel Sounds, Soft Extremity: Other (wound vac in place on my exam- to be removed prior to transfer) Neurologic/Psychiatric: Alert, Oriented x3 Hospital Course Patient was admitted to the hospital secondary to necrotizing fasciitis following a dog bite. Surgery was consulted and he underwent fasciotomy and wide debridement with Dr. CASTELLANOS. He was treated with IV antibiotics and did well. Given the wide debridement needed wound care was consulted and he was placed on a vera flow wound VAC. He was doing very well but had continued need for intensive wound care. A referral was sent to [facility] and he was accepted in transfer. I discussed the case with their physician reviewing his case here length of antibiotics and culture results. He was transferred there in stable and improved condition. Labs (last 24 hrs) Laboratory Tests 07/15/22 04:55: White Blood Count 12.0H, Red Blood Count 3.61L, Hemoglobin 10.9L, Hematocrit 33L , Mean Corpuscular Volume 91, Mean Corpuscular Hemoglobin 30, Mean Corpuscular Hemoglobin Concent 33, Red Cell Distribution Width 12.9, Platelet Count 522H, Mean Platelet Volume 8.6L, Immature Granulocyte % (Auto) 1, Neutrophils (%) (Auto) 70, Lymphocytes (%) (Auto) 20, Monocytes (%) (Auto) 5, Eosinophils (%) (Auto) 4, Basophils (%) (Auto) 1, Neutrophils # (Auto) 8.3H, Lymphocytes # (Auto) 2.4, Monocytes # (Auto) 0.6, Eosinophils # (Auto) 0.4H, Basophils # (Auto) 0.1, Immature Granulocyte # (Auto) 0.1, Sodium Level 138, Potassium Level 4.5, Chloride Level 104, Carbon Dioxide Level 25, Anion Gap 9, Blood Urea Nitrogen 21H, Creatinine 0.84, Estimat Glomerular Filtration Rate 116, BUN/Creatinine Ratio 25, Glucose Level 92, Calcium Level 9.3, Corrected Calcium 10.1, Phosphorus Level 3.7, Magnesium Level 1.6, Total Bilirubin 0.2, Aspartate Amino Transf (AST/SGOT) 21, Alanine Aminotransferase (ALT/SGPT) 34, Alkaline Phosphatase 57, Total Protein 6.8, Albumin 3.0L Microbiology 07/08/22 Gram Stain - Final, Complete 07/08/22 Anaerobic Culture - Final, Complete No anaerobes isolated 07/08/22 Surgical Culture - Final, Complete Staphylococcus aureus Streptococcus pyogenes Grp A 07/07/22 MRSA Screen - Final, Complete MRSA not isolated 07/07/22 Urine Culture - Final, Complete NO GROWTH 07/07/22 Blood Culture - Final, Complete No growth Patient resulted labs reviewed. Pending Labs Laboratory Tests 07/15/22 04:55: White Blood Count 12.0, Red Blood Count 3.61, Hemoglobin 10.9, Hematocrit 33, Mean Corpuscular Volume 91, Mean Corpuscular Hemoglobin 30, Mean Corpuscular Hemoglobin Concent 33, Red Cell Distribution Width 12.9, Platelet Count 522, Mean Platelet Volume 8.6, Immature Granulocyte % (Auto) 1, Neutrophils (%) (Auto) 70, Lymphocytes (%) (Auto) 20, Monocytes (%) (Auto) 5, Eosinophils (%) (Auto) 4, Basophils (%) (Auto) 1, Neutrophils # (Auto) 8.3, Lymphocytes # (Auto) 2.4, Monocytes # (Auto) 0.6, Eosinophils # (Auto) 0.4, Basophils # (Auto) 0.1, Immature Granulocyte # (Auto) 0.1, Sodium Level 138, Potassium Level 4.5, Chloride Level 104, Carbon Dioxide Level 25, Anion Gap 9, Blood Urea Nitrogen 21, Creatinine 0.84, Estimat Glomerular Filtration Rate 116, BUN/Creatinine Ratio 25, Glucose Level 92, Calcium Level 9.3, Corrected Calcium 10.1, Phosphorus Level 3.7, Magnesium Level 1.6, Total Bilirubin 0.2, Aspartate Amino Transf (AST/SGOT) 21, Alanine Aminotransferase (ALT/SGPT) 34, Alkaline Phosphatase 57, Total Protein 6.8, Albumin 3.0 Discussion & Recommendations Discharge Planning: >30 minutes discharge planning Discharge Home Medications: Active Scripts Active No Active Prescriptions or Reported Medications Instructions to patient/family Please see electronic discharge instructions given to patient. Clinical Quality Measures DVT/VTE Risk/Contraindication: Contraindications-Mechi: Other *list below* Other: leg cellulitis Problem Qualifiers (1) Sepsis: Sepsis type: sepsis due to unspecified organism Sepsis acute organ dysfunction status: with acute organ dysfunction Severe sepsis acute organ dysfunction type: acute renal failure Acute renal failure type: with acute tubular necrosis Severe sepsis shock status: without septic shock Qualified Codes: A41.9 - Sepsis, unspecified organism; R65.20 - Severe sepsis without septic shock; N17.0 - Acute kidney failure with tubular necrosis (2) Compartment syndrome of left lower extremity: Encounter type: initial encounter Qualified Codes: T79.A22A - Traumatic compartment syndrome of left lower extremity, initial encounter (3) Dog bite of calf: Encounter type: initial encounter Laterality: left Qualified Codes: S81.852A - Open bite, left lower leg, initial encounter; W54.0XXA - Bitten by dog, initial encounter CHOLO MARTINEZ MD Jul 15, 2022 10:05 am
[2022-07-15] MEDS: LORazepam INJ 2 MG/ML (ATIVAN) VIAL IVP PRN (11:19)
[2022-07-15 11:48] VITALS: BP 139/80
[2022-07-16] MEDS ORDERED: RABIES VACCINE HUMAN DIPL CELL 1 ML/2.5 UNITS SYR INJ ONE (12:00)
[2022-07-23] MEDS ORDERED: RABIES VACCINE HUMAN DIPL CELL 1 ML/2.5 UNITS SYR INJ ONE (12:00)
== END 2022-07-15 12:35 | DRG 853 ==
LOC: EDUNIT# 18:52 → ER 18:55 → ICU 22:15 → 4TH 07-13 17:13
PROVIDERS: ADMIT Internal Medicine; ATTEND Internal Medicine
PROC: 0KBT0ZZ Excision of Left Lower Leg Muscle, Open Approach (ICD-10-PCS; principal; 2022-07-08 16:54)
DX: A41.9 Sepsis, unspecified organism (principal); M72.6 Necrotizing fasciitis; N17.0 Acute kidney failure with tubular necrosis; L03.116 Cellulitis of left lower limb; N17.9 Acute kidney failure, unspecified; T79.A22A Traumatic compartment syndrome of left lower extremity, initial encounter; E46 Unspecified protein-calorie malnutrition; W54.0XXA Bitten by dog, initial encounter; Z23 Encounter for immunization; F19.10 Other psychoactive substance abuse, uncomplicated; F15.10 Other stimulant abuse, uncomplicated; F17.210 Nicotine dependence, cigarettes, uncomplicated; Z68.22 Body mass index [BMI] 22.0-22.9, adult
CPT/HCPCS: 36415; 36569; 73700; 76937; 80048; 80053; 80202; 80306; 81000; 82550; 83605; 83735; 84100; 84145; 85007; 85025; 85027; 85610; 85730; 86141; 87040; 87070; 87075; 87077; 87081; 87088; 87186; 87205; 90471; 90675; 90676; 90715; 94760; 96361; 96365; 96372; 96375

== ENCOUNTER 2022-08-13 09:19 | Outpatient (CLI) | payer SELFPAY ==
[~2022-08-13] VITALS: Ht 182.2 cm; Wt 77.2 kg
[2022-08-16] MEDS ORDERED: MELA1TAB27 PO (13:41)
[2022-08-16] MEDS ORDERED: OXYC5TAB PO (13:41)
[2022-08-16] MEDS ORDERED: LORA-407 PO (13:41)
[2022-08-16] MEDS ORDERED: ACET325T49 PO (13:41)
[2022-08-16] MEDS ORDERED: MTP25TSR PO (13:41)
[2022-08-16] MEDS ORDERED: MULT-974 PO (13:41)
[2022-08-16] MEDS ORDERED: PANT40TA52 PO (13:41)
[2022-08-16] MEDS ORDERED: ACHD5005 PO (13:41)
[2022-08-16] MEDS ORDERED: DOCU-143 PO (13:41)
[2022-08-16] MEDS ORDERED: NICO-685 TD (13:41)
== END 2022-08-16 13:48 ==
LOC: PREOP 09:19
PROVIDERS: ATTEND Surgery
DX: Z01.818 Encounter for other preprocedural examination (principal); S81.802A Unspecified open wound, left lower leg, initial encounter; Z98.890 Other specified postprocedural states; Z87.2 Personal history of diseases of the skin and subcutaneous tissue; X58.XXXA Exposure to other specified factors, initial encounter

== ENCOUNTER 2022-08-17 10:11 | Day surgery (SDC) | payer MEDICARE ==
--- NOTE | 2022-08-16 07:40 | HISTORY AND PHYSICAL ---
DATE OF SERVICE: 08/17/2022 HISTORY OF PRESENT ILLNESS: The patient is a 36-year-old male who presented to [facility] Emergency Department by private vehicle. He had mentioned that he had been bitten by a pit bull 2 days previous. He does not know whose dog this was and did not make any police reports or call animal control. He states that over time, he developed pain, erythema, drainage and swelling and decided to come to the Emergency Department. Upon examination, he was found to have redness, erythema as well as drainage. The compartments were initially soft. The patient was admitted and placed on IV fluids and IV antibiotics. The patient also does have a history of methamphetamine use and was found to be positive on urine drug screen. He is also a regular cigarette smoker. A CT scan was performed, which did show subcutaneous gas as well as edematous fluid within the fascial planes likely secondary to developing necrotizing fasciitis. On 07/08/2022, he underwent debridement of the left leg overlying the left calf muscle. This included the skin, subcutaneous tissue and fascia as well as muscle encompassing an area approximately 20 x 20 cm in dimension. There was also increasing pressure within the compartments and he underwent a 4-compartment fasciotomy. The patient did well postoperatively and a wound VAC applied. The patient continued to improve and was eventually referred to long-term acute care facility. At this time, the patient only has a limited amount of LTAC days and from the reports from his current location, the wound is healing well with good granulation tissue and no redness or erythema to indicate any current infection. The patient will require skin graft to allow for expedited epithelialization and overall healing, which he can manage at home without a wound VAC. PAST MEDICAL HISTORY: Drug abuse with methamphetamine. PAST SURGICAL HISTORY: Wide debridement, left posterior lower extremity overlying the calf distribution to the level of the muscle. ALLERGIES: No known drug allergies. MEDICATIONS: None known. SOCIAL HISTORY: Positive for methamphetamine use. Positive for cigarette smoke 25 pack years. States before that he did drink beer daily. FAMILY HISTORY: Noncontributory. REVIEW OF SYSTEMS: This is a well-nourished male, currently in no acute distress. He is not experiencing any shortness of breath or difficulty breathing. No chest pain, palpitations, diaphoresis. No nausea, vomiting, diarrhea or constipation. No fever or chills. No recent inadvertent weight loss. All other review of systems negative. PHYSICAL EXAMINATION: VITAL SIGNS: Stable, afebrile. CHEST: A few scattered wheezes bilaterally. HEART: Regular, no murmurs. EXTREMITIES: No lower extremity edema. Negative Homans sign. HEENT: No scleral icterus. No cervical lymphadenopathy. GASTROINTESTINAL: Abdomen is soft, nontender, nondistended. SKIN: There is granulation tissue along the tissue overlying the left calf with no surrounding redness or erythema to indicate any current infection. Previous cultures grew Staph aureus as well as group A beta hemolytic streptococcus. ASSESSMENT AND PLAN: A 36-year-old male with history of necrotizing fasciitis of the left lower extremity, status post wide debridement and wound VAC placement as well as 4-compartment fasciotomy. The wound is healing well; however, has been slow to epithelialized. The patient has been at a long-term acute care facility; however, only has a certain allotment of days left. The best possible strategy at this point is to proceed with a split thickness skin graft to the left lower extremity taken from the right thigh and then he would not need a wound VAC and could be discharged home with dressing changes instructions for home, which would encompass a nonstick barrier followed by Kerlix wrap on a daily basis. We will schedule him for the split-thickness skin graft. Job ID: [id number] DocumentID: [id number] Dictated Date: 08/12/2022 20:32:31 Pricing Lead Date: 08/12/2022 21:03:00 Dictated By: JARON CASTELLANOS MD
[~2022-08-17] VITALS: Ht 182.2 cm; Wt 77.2 kg
[2022-08-17] VITALS (10 sets, daily range): BP systolic 116–139; BP diastolic 53–88
[~2022-08-17 10:11] MED LIST: ACET325T49 PO; ACHD5005 PO; DOCU-143 PO; LORA-407 PO; MELA1TAB27 PO; MTP25TSR PO; MULT-974 PO; NICO-685 TD; OXYC5TAB PO; PANT40TA52 PO
[2022-08-17] MEDS ORDERED: ceFAZolin INJECTION 2,000 MG in NS (IVPB) 50 ML IV ONE (10:30)
[2022-08-17] MEDS ORDERED: MINERAL OIL 10 ML (MURI-LUBE) VIAL ONE (11:46)
[2022-08-17] MEDS ORDERED: LIDOCAINE/EPI 1%-1:100,000 (XYLOCAINE) 30ML ONE ×2 (11:46→13:29)
[2022-08-17] MEDS ORDERED: fentaNYL INJ 100 MCG/2 ML AMP ONE (12:00)
[2022-08-17] MEDS ORDERED: proPOfol 200 MG/20 ML (DIPRIVAN) VIAL IV ONE (12:00)
[2022-08-17] MEDS ORDERED: KETAMINE 50 MG/5 ML SYRINGE ONE (12:01)
[2022-08-17] MEDS ORDERED: LIDOCAINE 2% VISCOUS 15 ML UDC ONE (12:06)
--- NOTE | 2022-08-17 12:10 | Progress Note-Pre Operative ---
Pre-Operative Progress Note Date H&P Reviewed: Aug 17, 2022 Time H&P Reviewed: 12:05 History & Physical: H&P Reviewed, Patient Examed, No changes noted Pre-Operative Diagnosis: Persistent left lower extremity wound, hx necrotizing fasciitis DEMETRIUS ENRIQUEZ APRN Aug 17, 2022 12:10
--- NOTE | 2022-08-17 12:11 | Discharge Inst-Surgical ---
D/C Lap Instructions-KIDO Reconcile Patient Problems Problems Reviewed?: Yes Follow Up Appt in 2 weeks Activity as tolerated No driving for 24 hours No driving while on pain medications Incentive Spirometry use every 2 hours while awake Regular Diet Symptoms to Report: Fever over 101 degree F, Nausea/Vomiting Infection Signs and Symptoms to report: Increased redness, Foul odor of wound, Increased drainage Bathing instructions: May shower Operative Area Clean/Dry; Keep incision clean/dry If any problems/questions: Contact your physician or go to Emergency Room DEMETRIUS ENRIQUEZ APRN Aug 17, 2022 12:11
[2022-08-17] MEDS ORDERED: LIDOCAINE PF 1% 5 ML (XYLOCAINE) AMP ONE (12:12)
[2022-08-17] MEDS ORDERED: LIDOCAINE 4% INJ (XYLOCAINE) 5ML AMP INJ ONE (12:15)
[2022-08-17] MEDS ORDERED: ACETAMINOPHEN 325 MG TABLET PO PRN (12:15)
[2022-08-17] MEDS ORDERED: HYDROcodone/APAP 5 MG/325 MG (LORTAB) TAB PO ONE (12:15)
[2022-08-17] MEDS ORDERED: morphine INJ 10 MG/ML 1ML (SYR OR VIAL) IVP PRN (12:15)
[2022-08-17] MEDS ORDERED: ONDANSETRON 4 MG/2 ML (SDV) Z0FRAN IVP PRN ×2 (12:15→14:15)
[2022-08-17] MEDS: LACTATED RINGERS 1,000 ML IV PRN ×2 (12:44→14:49)
[2022-08-17] MEDS ORDERED: MINERAL OIL 10 ML (MURI-LUBE) VIAL TOP ONE (13:36)
[2022-08-17] MEDS ORDERED: LIDOCAINE/EPI 1%-1:100,000 (XYLOCAINE) 30ML INJ ONE (13:37)
[2022-08-17] MEDS ORDERED: LIDOCAINE/EPI 1%-1:100,000 (XYLOCAINE) 30ML TOP ONE (13:38)
--- NOTE | 2022-08-17 13:57 | Progress Note-Post Operative ---
Post-Operative Progess Note Surgeon (s)/Auditing Coder (s) Surgeon JARON CASTELLANOS MD Auditing Coder: cuate roberts [employer] Pre-Operative Diagnosis Persistent left lower extremity wound, hx necrotizing fasciitis Post-Operative Diagnosis same Procedure & Operative Findings Date of Procedure 08/17/22 Procedure Performed/Findings split thickness skin graft left calf [id number] with graft taken from right posterolateral thigh. Anesthesia Type get Estimated Blood Loss Estimated blood loss (mL): minimal Specimens/Packing Specimens Removed none JARON CASTELLANOS MD Aug 17, 2022 13:57
[2022-08-17] MEDS ORDERED: SEVOFLURANE (ULTANE) 15 ML INHAL SOLN ONE (14:01)
[2022-08-17] MEDS ORDERED: HYDROmorphone 2 MG/ML VIAL (DILAUDID) IV ONE (14:15)
--- NOTE | 2022-08-17 14:15 | Anesthesia-General Post-Op ---
General Patient Condition Mental Status/LOC: Same as Preop Cardiovascular: Satisfactory Nausea/Vomiting: Absent Respiratory: Satisfactory Pain: Controlled Complications: Absent Post Op Complications Complications None Follow Up Care/Instructions Patient Instructions None needed. Anesthesia/Patient Condition Patient Condition Patient is doing well, no complaints, stable vital signs, no apparent adverse anesthesia problems. No complications reported per nursing. RUSH WOO CRNA Aug 17, 2022 14:15
[2022-08-17] MEDS ORDERED: HYDROcodone/APAP 5 MG/325 MG (LORTAB) TAB ONE (15:42)
--- NOTE | 2022-08-18 00:51 | OPERATIVE REPORT ---
DATE OF SERVICE: 08/17/2022 PREOPERATIVE DIAGNOSIS: History of dog bite and necrotizing fasciitis, left lower extremity overlying the calf muscle. POSTOPERATIVE DIAGNOSIS: History of dog bite and necrotizing fasciitis, left lower extremity overlying the calf muscle. PROCEDURES: Split-thickness skin graft, left posterior calf with the graft taken from the posterolateral right thigh [id number]. SURGEON: Jaron Castellanos MD SET ILLUSTRATOR: Bry Hurd APRN ESTIMATED BLOOD LOSS: Minimal. FINDINGS: Dimensions of the graft site 15 x 12 cm in size. DISPOSITION: The patient tolerated the procedure well. INDICATIONS: The patient is a 36-year-old male who presented to [facility] Emergency Department by private vehicle. He had mentioned that he had been bitten by a pit bull 2 days previous. He does not know whose dog this was, he did not make a police report or call animal control. He states over time, he developed pain, erythema, drainage, swelling and decided to come to the emergency department. Upon examination, he was found to have redness and erythema as well as purulent drainage. The compartments were initially soft. The patient was admitted and placed on IV fluids and IV antibiotics. The patient also does have a history of methamphetamine use and was found to be positive on urine drug screen and he is also a regular cigarette smoker with [address] scan was performed, which did show subcutaneous gas as well as edematous fluid within the fascial planes consistent with necrotizing fasciitis. On 07/08/2022, he underwent debridement of the left leg overlying the calf muscle. This included the skin, subcutaneous tissue and fascia and muscle encompassing an area of 20 x 20 cm in size. There was also increasing pressures within the compartment seen. He underwent a 4-compartment fasciotomy. The patient did well postoperatively and the wound VAC was applied. The patient was then eventually referred to a long-term acute care facility. At this time, the patient only has a limited time in the LTAC and needed to proceed with something that did not require a wound VAC to augment healing. Upon examination, he had good granulation tissue with no redness or erythema to indicate any infection. It was decided to proceed with a split thickness skin graft to expedite epithelialization which he could manage at [facility]. DESCRIPTION OF PROCEDURE: The patient was brought to the operating room, laid supine on the table. After adequate IV pain and sedative medications ad general endotracheal intubation, the patient was placed in prone position. The dimensions of the open portion of the previously debrided wound of the left lower extremity were 12 x 15 cm. We then proceeded with a 3-inch dermatome at 0.2 mm thick and this 3 inches wide. Before the procedure, the right thigh was prepped and draped in a standard surgical fashion. Mineral oil was placed and then we proceeded with harvesting the split-thickness skin graft from the posterolateral thigh in four locations with visualization with good hemostasis and saline soaked in epinephrine was then placed onto the harvest site with a lap sponge with visualization with good hemostasis. We then proceeded with meshing of the split-thickness skin graft with a 1:1.5 ratio mesher. The skin graft was then placed completely over the granulation bed of the wound and skin george were placed to hold this in place. Good hemostasis was observed and then fibrin glue was placed onto the skin graft and dressed with a nonstick dressing followed by a 4 x 4 gauze followed by Kerlix and then Coban. Good hemostasis was achieved from the right thigh harvest site and a large Op-Site were placed onto the harvest areas with visualization with good hemostasis. The patient tolerated the procedure well. POSTOPERATIVE PLAN: He will be instructed to follow up with us on a weekly basis to evaluate the wound and to debride any portions of the skin graft did not take. We will instruct [facility] to continue with daily dressing changes with a nonstick dressing followed by 4 x 4's, followed by Kerlix and Coban on a daily basis. We will also have them remove the Op-Site in [address] and then to place a nonstick dressing followed by gauze and Kerlix on a daily basis. Job ID: [id number] DocumentID: [id number] Dictated Date: 08/17/2022 14:06:06 Fuel Cell Assembler Date: 08/18/2022 00:49:00 Dictated By: JARON CASTELLANOS MD [facility]
== END 2022-08-17 16:38 | disposition home or self-care (01) ==
LOC: SDC 10:11
PROVIDERS: ATTEND Surgery
DX: M72.6 Necrotizing fasciitis (principal); S81.852S Open bite, left lower leg, sequela; W54.0XXS Bitten by dog, sequela; F17.210 Nicotine dependence, cigarettes, uncomplicated; F15.10 Other stimulant abuse, uncomplicated; Z28.310 Unvaccinated for COVID-19
CPT/HCPCS: 87081; 94640